=== PATIENT | female | born 1970 | race Caucasian/White ===

== ENCOUNTER → 2019-02-20 | Outpatient (CLI) | payer BC ==
--- NOTE | 2019-02-21 13:44 | MM ---
Reason for exam: screening (asymptomatic). Baseline mammogram. Physical Findings: Nurse did not find any significant physical abnormalities on exam. MG 3D Screening Mammo W/Cad Bilateral CC and MLO view(s) were taken. No prior studies available for comparison. There are scattered fibroglandular densities. No discrete abnormality. Inferior asymmetric density left breast does not persist on 3D. ASSESSMENT: Negative, BI-RAD 1 RECOMMENDATION: Routine screening mammogram of both breasts in 1 year.
== END | disposition home or self-care (01) ==
LOC: RADMAMWWP 08:22
PROVIDERS: ATTEND Obstetrics & Gynecology Obstetrics
DX: Z12.31 Encounter for screening mammogram for malignant neoplasm of breast (principal)
CPT/HCPCS: 77063; 77067

== ENCOUNTER → 2020-05-13 | Outpatient (CLI) | payer BC ==
--- NOTE | 2020-05-13 17:37 | ECHOF ---
Referral Reason: MEASUREMENTS -------- HEIGHT: 167.6 cm WEIGHT: 113.4 kg BP: RVIDd: 3.0 cm (< 3.3) IVSd: 1.1 cm (0.6 - 1.1) LVIDd: 4.0 cm (3.9 - 5.3) LVPWd: 1.4 cm (0.6 - 1.1) IVSs: 2.0 cm LVIDs: 2.1 cm LVPWs: 1.8 cm LAESV Index (A-L): 21.69 ml/m Ao Diam: 2.3 cm (2.0 - 3.7) AV Cusp: 1.8 cm (1.5 - 2.6) LA Diam: 2.3 cm (2.7 - 3.8) MV EXCURSION: 15.856 mm (> 18.000) MV EF SLOPE: 102 mm/s (70 - 150) MV E Cecil: 0.88 m/s MV DecT: 192 ms MV A Cecil: 0.86 m/s MV E/A Ratio: 1.02 RAP: 5.00 mmHg RVSP: 8.98 mmHg FINDINGS -------- This was a technically adequate study. The left ventricular size is normal. There is mild concentric left ventricular hypertrophy. Overa ll left ventricular systolic function is normal with, an EF between 55 - 60 %. The right ventricle is normal in size. The left atrial size is normal. The right atrial size is normal. The aortic valve is trileaflet and appears structurally normal. The mitral valve is normal. Mild mitral regurgitation is present. The tricuspid valve appears structurally normal. Mild tricuspid regurgitation present. Right vent ricular systolic pressure is normal at < 35 mmHg. There is no pulmonic regurgitation present. The aortic root size is normal. Normal inferior vena cava with normal inspiratory collapse consistent with estimated right atrial pre ssure of 5 mmHg. There is no pericardial effusion. CONCLUSIONS -------- 1. There is mild concentric left ventricular hypertrophy. 2. Overall left ventricular systolic function is normal with, an EF between 55 - 60 %. 3. Mild mitral regurgitation is present. 4. Mild tricuspid regurgitation present. 5. There is no pericardial effusion. TURPENTINE FARMER: Tatiana Romo RDCS
== END | disposition home or self-care (01) ==
LOC: RADECHMAIN 12:10
PROVIDERS: ATTEND Nurse Practitioner Adult Health
DX: I08.1 Rheumatic disorders of both mitral and tricuspid valves (principal)
CPT/HCPCS: 93306

== ENCOUNTER → 2021-05-05 | Outpatient (CLI) | payer BC ==
--- NOTE | 2021-05-05 14:36 | US ---
EXAMINATION TYPE: US venous doppler duplex LE LT DATE OF EXAM: 05/05/2021 2:21 PM COMPARISON: NONE CLINICAL HISTORY: M25.572 Pain in ankle/ CAlf. Patient stated had left ankle injury in January, but c/o left calf swelling and pain x 2 days SIDE PERFORMED: Left TECHNIQUE: The lower extremity deep venous system is examined utilizing real time linear array sonog chel with graded compression, doppler sonography and color-flow sonography. VESSELS IMAGED: Common Femoral Vein Deep Femoral Vein Greater Saphenous Vein * Femoral Vein Popliteal Vein Small Saphenous Vein * Proximal Calf Veins (* superficial vessels) Left Leg: Negative for DVT IMPRESSION: No evidence for DVT.
== END | disposition home or self-care (01) ==
LOC: RADUSWWP 13:53
PROVIDERS: ATTEND Orthopaedic Surgery Sports Medicine
DX: M25.572 Pain in left ankle and joints of left foot (principal); R22.42 Localized swelling, mass and lump, left lower limb

== ENCOUNTER 2022-03-01 20:28 | Emergency (ER) | payer BC ==
[2022-03-01 20:34] VITALS: BP 119/64; PULSE 90; RESP 16; TEMP 98.1
[2022-03-01 21:14] LABS: Anisocytosis Slight; Basophils # (A) 0.1 k/uL (0-0.2); Basophils % (A) 1 %; Eosinophils # (A) 0.2 k/uL (0-0.7); Eosinophils % (A) 1 %; HCT 41.5 % (34.0-46.0); HGB 13.2 gm/dL (11.4-16.0); Hypochromasia Slight; Lymphocytes # (A) 3.7 k/uL (1.0-4.8); Lymphocytes % (A) 26 %; MCH 27.2 pg (25.0-35.0); MCHC 31.9 g/dL (31.0-37.0); MCV 85.4 fL (80.0-100.0); Monocytes # (A) 0.7 k/uL (0-1.0); Monocytes % (A) 5 %; Neutrophils # (A) 9.2 k/uL (1.3-7.7); Neutrophils % (A) 65 %; Platelet Count 363 k/uL (150-450); RBC 4.86 m/uL (3.80-5.40); RDW 16.7 % (11.5-15.5); WBC 14.1 k/uL (3.8-10.6)
[2022-03-01 21:24] LABS: Albumin 4.3 g/dL (3.5-5.0); Calcium 8.5 mg/dL (8.4-10.2); Potassium 3.5 mmol/L (3.5-5.1); Total Bilirubin 0.2 mg/dL (0.2-1.3); Total Protein 7.6 g/dL (6.3-8.2)
[2022-03-01 21:25] LABS: Prothrombin Time 10.7 sec (9.0-12.0)
--- NOTE | 2022-03-02 00:31 | ED ---
General Adult HPI - General Chief complaint: Dizziness Stated complaint: dizziness Time Seen by Provider: 03/02/22 00:15 Source: patient, RN notes reviewed, old records reviewed Mode of arrival: ambulatory Limitations: no limitations - History of Present Illness Initial comments: Well-appearing 52-year-old female, alert and oriented 4 presents to the e mergency room with her son complaining of an episode of dizziness today with diaphoresis. Patient states that she was in the bathroom on the toilet she has been having some vaginal bleeding daily since November when taken off of Depakote. She is passing large clots. Her primary care doctor has been working her up for the increased vaginal bleeding. She also has history of an anemia. She does state. Denies any chest pain. She states that she did not pass out she does have a history of hypertension and anemia and cholecystectomy. She does have a family history of cardiac disease. Her last echocardiogram and stress test was over 5 years ago. -: hour(s) Severity scale (1-10): 0 Consistency: now resolved Associated Symptoms: diaphoresis, other (Dizziness) - Related Data Home Medications Medication Instructions Recorded Confirmed Topiramate 50 mg PO DAILY 02/14/14 02/14/14 Allergies Allergy/AdvReac Type Severity Reaction Status Date / Time cefaclor [From [facility]] Allergy Rash/Hives Verified 03/01/22 20:34 Review of Systems ROS Statement: Those systems with pertinent positive or pertinent negative responses have been documented in the HPI. ROS Other: All systems not noted in ROS Statement are negative. Past Medical History Past Medical History: Hypertension Additional Past Medical History / Comment(s): Anemia, Hypoglycemia History of Any Multi-Drug Resistant Organisms: None Reported Past Surgical History: Cholecystectomy, Hernia Repair Past Anesthesia/Blood Transfusion Reactions: No Reported Reaction Past Psychological History: No Psychological Hx Reported Smoking Status: Vaper Past Alcohol Use History: Occasional Past Drug Use History: None Reported General Exam Limitations: no limitations General appearance: alert, in no apparent distress Head exam: Present: atraumatic, normocephalic Eye exam: Present: normal appearance. Absent: scleral icterus, conjunctival injection, periorbital swelling, periorbital tenderness ENT exam: Present: mucous membranes dry Neck exam: Present: normal inspection, full ROM. Absent: tenderness, meningismus Respiratory exam: Present: normal lung sounds bilaterally. Absent: respiratory distress, accessory muscle use Cardiovascular Exam: Present: regular rate GI/Abdominal exam: Present: soft. Absent: distended, tenderness Extremities exam: Present: normal capillary refill, pedal edema (Trace) Neurological exam: Present: alert, oriented X3 Psychiatric exam: Present: normal affect, normal mood Skin exam: Present: warm, dry, intact. Absent: cyanosis, diaphoretic, petechiae Course Vital Signs 03/01/22 20:29 Temperature 98.1 F Pulse Rate 90 Respiratory 16 Rate Blood Pressure 119/64 O2 Sat by Pulse 96 Oximetry EKG Findings - EKG Results: EKG: sinus rhythm (Sinus rhythm with ventricular rate 82, MA interval 0.152, QRS 0.89, QTC 0.427) Medical Decision Making - Medical Decision Making Hemoglobin and hematocrit are stable. Troponin 2 is negative. TSH is 1.250. Chest x-ray shows no acute cardiopulmonary disease. EKG shows sinus rhythm normal axis. Vital signs are stable. She has no focal neurological deficits. She denies any headaches or visual changes. Patient has had no further episodes of dizziness or diaphoresis. She denies chest pain or shortness of breath. This was likely a vasovagal episode related to toileting and vaginal bleeding. She was instructed to follow-up with her primary care doctor this week. Return to the emergency room with any new or concerning symptoms. She was discharged home with her son, ambulatory with a steady gait. She is agreeable to this plan of care. Case was discussed with Dr. Matos. - Lab Data Result diagrams: 03/01/22 21:06 03/01/22 21:06 Lab Results 03/01/22 03/01/22 03/01/22 Range/Units 21:06 21:06 21:06 WBC 14.1 H (3.8-10.6) k/uL RBC 4.86 (3.80-5.40) m/uL Hgb 13.2 (11.4-16.0) gm/dL Hct 41.5 (34.0-46.0) % MCV 85.4 (80.0-100.0) fL MCH 27.2 (25.0-35.0) pg MCHC 31.9 (31.0-37.0) g/dL RDW 16.7 H (11.5-15.5) % Plt Count 363 (150-450) k/uL MPV 8.0 Neutrophils % 65 % Lymphocytes % 26 % Monocytes % 5 % Eosinophils % 1 % Basophils % 1 % Neutrophils # 9.2 H (1.3-7.7) k/uL Lymphocytes # 3.7 (1.0-4.8) k/uL Monocytes # 0.7 (0-1.0) k/uL Eosinophils # 0.2 (0-0.7) k/uL Basophils # 0.1 (0-0.2) k/uL Hypochromasia Slight Anisocytosis Slight PT (9.0-12.0) sec INR (<1.2) Sodium 142 (137-145) mmol/L Potassium 3.5 (3.5-5.1) mmol/L Chloride 113 H (98-107) mmol/L Carbon Dioxide 14 L (22-30) mmol/L Anion Gap 15 mmol/L BUN 10 (7-17) mg/dL Creatinine 1.02 (0.52-1.04) mg/dL Est GFR (CKD-EPI)AfAm 75 (>60 ml/min/1.73 sqM) Est GFR (CKD-EPI)NonAf 65 (>60 ml/min/1.73 sqM) Glucose 100 H (74-99) mg/dL Calcium 8.5 (8.4-10.2) mg/dL Total Bilirubin 0.2 (0.2-1.3) mg/dL AST 22 (14-36) U/L ALT 21 (4-34) U/L Alkaline Phosphatase 90 (38-126) U/L Troponin I <0.012 (0.000-0.034) ng/mL Total Protein 7.6 (6.3-8.2) g/dL Albumin 4.3 (3.5-5.0) g/dL TSH (0.465-4.680) mIU/L 03/01/22 03/02/22 03/02/22 Range/Units 21:07 00:59 00:59 WBC (3.8-10.6) k/uL RBC (3.80-5.40) m/uL Hgb (11.4-16.0) gm/dL Hct (34.0-46.0) % MCV (80.0-100.0) fL MCH (25.0-35.0) pg MCHC (31.0-37.0) g/dL RDW (11.5-15.5) % Plt Count (150-450) k/uL MPV Neutrophils % % Lymphocytes % % Monocytes % % Eosinophils % % Basophils % % Neutrophils # (1.3-7.7) k/uL Lymphocytes # (1.0-4.8) k/uL Monocytes # (0-1.0) k/uL Eosinophils # (0-0.7) k/uL Basophils # (0-0.2) k/uL Hypochromasia Anisocytosis PT 10.7 (9.0-12.0) sec INR 1.0 (<1.2) Sodium (137-145) mmol/L Potassium (3.5-5.1) mmol/L Chloride (98-107) mmol/L Carbon Dioxide (22-30) mmol/L Anion Gap mmol/L BUN (7-17) mg/dL Creatinine (0.52-1.04) mg/dL Est GFR (CKD-EPI)AfAm (>60 ml/min/1.73 sqM) Est GFR (CKD-EPI)NonAf (>60 ml/min/1.73 sqM) Glucose (74-99) mg/dL Calcium (8.4-10.2) mg/dL Total Bilirubin (0.2-1.3) mg/dL AST (14-36) U/L ALT (4-34) U/L Alkaline Phosphatase (38-126) U/L Troponin I <0.012 (0.000-0.034) ng/mL Total Protein (6.3-8.2) g/dL Albumin (3.5-5.0) g/dL TSH 1.250 (0.465-4.680) mIU/L Disposition Clinical Impression: Dizziness Disposition: HOME SELF-CARE Condition: Good Instructions (If sedation given, give patient instructions): Dizziness (ED) Additional Instructions: Increase your fluid intake. Follow-up with your primary care doctor or DATABASE TECHNICIAN for your persistent vaginal bleeding. Return to the emergency room with any new or concerning symptoms including chest pain or shortness of breath. Is patient prescribed a controlled substance at d/c from ED?: No Referrals: Rigo Haider MD [Primary Care Provider] - 1-2 days Time of Disposition: 02:12
--- NOTE | 2022-03-02 00:53 | XR ---
EXAMINATION TYPE: XR chest 2V DATE OF EXAM: 03/02/2022 COMPARISON: 02/13/2014 HISTORY: 2 views TECHNIQUE: FINDINGS: Heart and mediastinum are normal. Lungs are clear. Diaphragm is normal. Bony thorax is intact. IMPRESSION: Normal chest. No change.
== END 2022-03-02 02:48 | disposition home or self-care (01) ==
LOC: EC 20:28
DX: R42 Dizziness and giddiness (principal); I10 Essential (primary) hypertension; F17.209 Nicotine dependence, unspecified, with unspecified nicotine-induced disorders; Z91.018 Allergy to other foods
CPT/HCPCS: 36415; 71046; 80053; 84443; 84484; 85025; 85610; 93005; 99284

== ENCOUNTER 2022-04-23 19:22 | Inpatient (IN) | payer OTHER ==
--- NOTE | 2022-04-23 22:35 | US ---
EXAMINATION TYPE: US venous doppler duplex LE RT DATE OF EXAM: 04/23/2022 10:04 PM COMPARISON: NONE CLINICAL HISTORY: swelling, pain, extremity cold. Right leg swelling, numbness, cold to touch SIDE PERFORMED: Right TECHNIQUE: The lower extremity deep venous system is examined utilizing real time linear array sonog chel with graded compression, doppler sonography and color-flow sonography. VESSELS IMAGED: Common Femoral Vein Deep Femoral Vein Greater Saphenous Vein * Femoral Vein Popliteal Vein Small Saphenous Vein * Proximal Calf Veins (* superficial vessels) Right Leg: Limited due to edema. Vessels visualized had good color and blood flow. IMPRESSION: No evidence of deep vein thrombosis in the right leg.
[2022-04-23] MEDS ORDERED: HYDROmorphone 1 MG/ML 1 ML SYRINGE IVP STA (23:47)
[2022-04-23] MEDS ORDERED: RX INFO: IV CONTRAST WAS GIVEN 1 EACH MISC MISCELLANE PRN (23:58)
--- NOTE | 2022-04-24 00:05 | ED ---
Extremity Problem HPI - General Chief complaint: Extremity Problem,Nontraumatic Stated complaint: Food cold, No feeling on right side Time Seen by Provider: 04/23/22 23:14 Source: patient, RN notes reviewed, old records reviewed Mode of arrival: ambulatory Limitations: no limitations - History of Present Illness Initial comments: This is a 52-year-old female to the emergency department for evaluation she presents today for evaluation regards to severe right lower Shorty pain initially she's been doing with for greater than a week and a half now. She was seen at outside hospital with no profound diagnosis diagnoses myositis but her strength has not returned to that lower extremity and numbness and tingling has not improved. Her right lower extremity is significantly swollen. With significant weakness, cold diminishing color MD Complaint: extremity pain, extremity swelling, cold extremity, joint swelling, joint pain -: week(s) (2) Location: right, lower extremity History of Same: Yes (2 weeks) -: Yes myalgia Radiation: proximal, distal Severity scale (1-10): 10 Consistency: constant Improves with: nothing Worsens with: weight bearing Associated Symptoms: myalgias - Related Data Home Medications Medication Instructions Recorded Confirmed Topiramate 50 mg PO DAILY 02/14/14 02/14/14 Allergies Allergy/AdvReac Type Severity Reaction Status Date / Time cefaclor [From Ceclor] Allergy Rash/Hives Verified 04/23/22 21:03 Review of Systems ROS Statement: Those systems with pertinent positive or pertinent negative responses have been documented in the HPI. ROS Other: All systems not noted in ROS Statement are negative. Past Medical History Past Medical History: Hypertension Additional Past Medical History / Comment(s): Anemia, Hypoglycemia History of Any Multi-Drug Resistant Organisms: None Reported Past Surgical History: Cholecystectomy, Hernia Repair Past Anesthesia/Blood Transfusion Reactions: No Reported Reaction Past Psychological History: No Psychological Hx Reported Smoking Status: Never smoker, Vaper Past Alcohol Use History: Occasional Past Drug Use History: None Reported General Exam Limitations: no limitations General appearance: alert, in no apparent distress, anxious Head exam: Present: atraumatic, normocephalic, normal inspection Eye exam: Present: normal appearance, PERRL, EOMI. Absent: scleral icterus, conjunctival injection, periorbital swelling ENT exam: Present: normal exam, mucous membranes moist Neck exam: Present: normal inspection. Absent: tenderness, meningismus, lymphadenopathy Respiratory exam: Present: normal lung sounds bilaterally. Absent: respiratory distress, wheezes, rales, rhonchi, stridor Cardiovascular Exam: Present: regular rate, normal rhythm, normal heart sounds. Absent: systolic murmur, diastolic murmur, rubs, gallop, clicks GI/Abdominal exam: Present: soft, normal bowel sounds. Absent: distended, tenderness, guarding, rebound, rigid Extremities exam: Present: tenderness, pedal edema, joint swelling, calf tenderness, other (Right lower extremity is cold with diminished pulse). Absent: normal inspection, full ROM (Minimal mobility with right lower extremity), normal capillary refill (Diminished) Back exam: Present: normal inspection Neurological exam: Present: alert, oriented X3, CN II-XII intact Psychiatric exam: Present: normal affect, depressed Skin exam: Present: dry, intact, cyanosis, pallor, other (Right lower extremity is significantly swollen pale and cold). Absent: rash Course Vital Signs 04/23/22 04/24/22 20:58 00:42 Temperature 98.5 F Pulse Rate 78 64 Respiratory 20 18 Rate Blood Pressure 160/94 125/85 O2 Sat by Pulse 100 100 Oximetry - Reevaluation(s) Reevaluation #1: 04/24/22 00:40 Medical records are reviewed 04/24/22 00:40 Medical records from [facility] but requested Reevaluation #2: 04/24/22 00:40 Patient has improved pain control Reevaluation #3: 04/24/22 02:50 Patient informed results questions answered - Consultations Consultation #1: Spoke with [facility] she will admit this patient Medical Decision Making - Medical Decision Making 52 female to the emergency department for evaluation of significantly right lower extremity edema and pain weakness and paresthesia mild strength to gravity. Arterial flow but significant edema and right compared to left leg, patient be admitted for further evaluation management, pain control - Lab Data Result diagrams: 04/24/22 00:40 04/24/22 00:40 Lab Results 04/23/22 04/24/22 04/24/22 Range/Units 01:08 00:40 00:40 WBC (3.8-10.6) k/uL RBC (3.80-5.40) m/uL Hgb (11.4-16.0) gm/dL Hct (34.0-46.0) % MCV (80.0-100.0) fL MCH (25.0-35.0) pg MCHC (31.0-37.0) g/dL RDW (11.5-15.5) % Plt Count (150-450) k/uL MPV Neutrophils % % Lymphocytes % % Monocytes % % Eosinophils % % Basophils % % Neutrophils # (1.3-7.7) k/uL Lymphocytes # (1.0-4.8) k/uL Monocytes # (0-1.0) k/uL Eosinophils # (0-0.7) k/uL Basophils # (0-0.2) k/uL Anisocytosis PT (9.0-12.0) sec INR (<1.2) APTT (22.0-30.0) sec Sodium 137 (137-145) mmol/L Potassium 3.7 (3.5-5.1) mmol/L Chloride 106 (98-107) mmol/L Carbon Dioxide 23 (22-30) mmol/L Anion Gap 8 mmol/L BUN 11 (7-17) mg/dL Creatinine 0.77 (0.52-1.04) mg/dL Est GFR (CKD-EPI)AfAm >90 (>60 ml/min/1.73 sqM) Est GFR (CKD-EPI)NonAf >90 (>60 ml/min/1.73 sqM) Glucose 83 (74-99) mg/dL Plasma Lactic Acid Sudheer 1.4 (0.7-2.0) mmol/L Calcium 8.2 L (8.4-10.2) mg/dL Phosphorus 2.8 (2.5-4.5) mg/dL Magnesium 1.9 (1.6-2.3) mg/dL Total Bilirubin 0.4 (0.2-1.3) mg/dL AST 38 H (14-36) U/L ALT 52 H (4-34) U/L Alkaline Phosphatase 58 (38-126) U/L Creatine Kinase 217 H (30-135) U/L CK-MB (CK-2) 4.0 H (0.0-2.4) ng/mL Troponin I <0.012 (0.000-0.034) ng/mL NT-Pro-B Natriuret Pep pg/mL Total Protein 5.4 L (6.3-8.2) g/dL Albumin 3.1 L (3.5-5.0) g/dL 04/24/22 04/24/22 04/24/22 Range/Units 00:40 00:40 00:40 WBC 12.3 H (3.8-10.6) k/uL RBC 4.21 (3.80-5.40) m/uL Hgb 11.6 (11.4-16.0) gm/dL Hct 36.6 (34.0-46.0) % MCV 86.9 (80.0-100.0) fL MCH 27.6 (25.0-35.0) pg MCHC 31.7 (31.0-37.0) g/dL RDW 16.5 H (11.5-15.5) % Plt Count 242 (150-450) k/uL MPV 7.6 Neutrophils % 62 % Lymphocytes % 28 % Monocytes % 5 % Eosinophils % 3 % Basophils % 1 % Neutrophils # 7.6 (1.3-7.7) k/uL Lymphocytes # 3.5 (1.0-4.8) k/uL Monocytes # 0.6 (0-1.0) k/uL Eosinophils # 0.3 (0-0.7) k/uL Basophils # 0.1 (0-0.2) k/uL Anisocytosis Slight PT 9.7 (9.0-12.0) sec INR 0.9 (<1.2) APTT 22.0 (22.0-30.0) sec Sodium (137-145) mmol/L Potassium (3.5-5.1) mmol/L Chloride (98-107) mmol/L Carbon Dioxide (22-30) mmol/L Anion Gap mmol/L BUN (7-17) mg/dL Creatinine (0.52-1.04) mg/dL Est GFR (CKD-EPI)AfAm (>60 ml/min/1.73 sqM) Est GFR (CKD-EPI)NonAf (>60 ml/min/1.73 sqM) Glucose (74-99) mg/dL Plasma Lactic Acid Sudheer (0.7-2.0) mmol/L Calcium (8.4-10.2) mg/dL Phosphorus (2.5-4.5) mg/dL Magnesium (1.6-2.3) mg/dL Total Bilirubin (0.2-1.3) mg/dL AST (14-36) U/L ALT (4-34) U/L Alkaline Phosphatase (38-126) U/L Creatine Kinase (30-135) U/L CK-MB (CK-2) (0.0-2.4) ng/mL Troponin I (0.000-0.034) ng/mL NT-Pro-B Natriuret Pep 138 pg/mL Total Protein (6.3-8.2) g/dL Albumin (3.5-5.0) g/dL - EKG Data -: EKG Interpreted by Me (EKG shows sinus rhythm 65 OK 148 QRS 94 QTc 433) - Radiology Data Radiology results: report reviewed (CT angios aorta in the right lower extremity shows arterial flow throughout leg), image reviewed Disposition Clinical Impression: Leg edema, right, Right leg paresthesias, Edema of lower extremity, Right leg pain Disposition: ADMITTED IP TO THIS [facility] Condition: Undetermined Is patient prescribed a controlled substance at d/c from ED?: No Referrals: Rigo Haider MD [Primary Care Provider] - 1-2 days Time of Disposition: 02:45
[2022-04-24 01:08] LABS: Anisocytosis Slight; Basophils # (A) 0.1 k/uL (0-0.2); Basophils % (A) 1 %; Eosinophils # (A) 0.3 k/uL (0-0.7); Eosinophils % (A) 3 %; HCT 36.6 % (34.0-46.0); HGB 11.6 gm/dL (11.4-16.0); Lymphocytes # (A) 3.5 k/uL (1.0-4.8); Lymphocytes % (A) 28 %; MCH 27.6 pg (25.0-35.0); MCHC 31.7 g/dL (31.0-37.0); MCV 86.9 fL (80.0-100.0); Mean Platelet Volume 7.6; Monocytes # (A) 0.6 k/uL (0-1.0); Monocytes % (A) 5 %; Neutrophils # (A) 7.6 k/uL (1.3-7.7); Neutrophils % (A) 62 %; Platelet Count 242 k/uL (150-450); RBC 4.21 m/uL (3.80-5.40); RDW 16.5 % (11.5-15.5); WBC 12.3 k/uL (3.8-10.6)
[2022-04-24 01:18] LABS: ALT 52 U/L (4-34); African American GFR (CKD) >90 (>60 ml/min/1.73 sqM); Albumin 3.1 g/dL (3.5-5.0); Anion Gap 8 mmol/L; Blood Urea Nitrogen 11 mg/dL (7-17); Calcium 8.2 mg/dL (8.4-10.2); Carbon Dioxide 23 mmol/L (22-30); Chloride 106 mmol/L (98-107); Creatine Kinase 217 U/L (30-135); Glucose 83 mg/dL (74-99); Non-African American GFR(CKD) >90 (>60 ml/min/1.73 sqM); Sodium 137 mmol/L (137-145); Total Bilirubin 0.4 mg/dL (0.2-1.3); Total Protein 5.4 g/dL (6.3-8.2)
[2022-04-24 01:25] LABS: AST 38 U/L (14-36); Alkaline Phosphatase 58 U/L (38-126); Magnesium 1.9 mg/dL (1.6-2.3); Phosphorus 2.8 mg/dL (2.5-4.5); Potassium 3.7 mmol/L (3.5-5.1)
[2022-04-24 01:27] LABS: INR 0.9 (<1.2); Prothrombin Time 9.7 sec (9.0-12.0)
[2022-04-24 01:30] LABS: Troponin I <0.012 ng/mL (0.000-0.034)
--- NOTE | 2022-04-24 02:40 | CT ---
CT angiogram of the chest abdomen pelvis with runoffs. History right leg with no pulse. Swelling. Comparison none. TECHNIQUE: Images obtained from the thoracic inlet to the diaphragm with no contrast. Images obtained from the thoracic inlet to the bottom of the feet with the IV contrast. There are Thr ee-D postprocessed images. FINDINGS: The lungs are clear of infiltrate. Heart size is normal. No pericardial effusion. No mediastinal gregor opathy. There are no hilar masses. Thoracic aorta is intact. No aneurysm or dissection. The liver spleen and stomach pancreas appear intact. There are clips from cholecystectomy. The bile d ucts are not dilated. Kidneys show satisfactory contrast opacification. There is no hydronephrosis. U reters are not dilated. There is no evidence of renal mass. No retroperitoneal adenopathy. Cecum is o n the left of midline. Bladder distends smoothly. Uterus is intact. No inguinal hernia. No free fluid in the pelvis. There is 1.5 cm cyst posterior left kidney. There is subcutaneous edema around the right leg. There is arterial flow in the abdominal aorta and the celiac artery and superior mesenteric artery. T here is arterial flow in the renal and iliac arteries. No evidence of aneurysm or dissection. There i s arterial flow in the femoral arteries bilaterally. There is arterial flow in the popliteal arteries . There is diffuse subcutaneous edema around both lower legs and more on the right side. There is sub optimal contrast density in the tibial and popliteal arteries. There is posterior tibial artery flow at the right ankle. There is posterior tibial artery flow at the left ankle. There appears to be ante rior tibial artery flow at both ankles. I do not see an occlusion. There is bilateral flow in the fem oral and iliac veins. There is normal opacification of the inferior vena cava. The thoracic and lumbar spine are intact. No compression fracture IMPRESSION: Suboptimal exam. Limited arterial evaluation of the lower legs below the knees. No evidence of a comp lete arterial occlusion. There is diffuse subcutaneous edema around the right leg and minimal edema a round the left leg. If there is persisting clinical indication Doppler ultrasound could verify some arterial flow in the dorsalis pedis arteries and posterior tibial arteries. No evidence of radiographic abnormality within the abdomen and pelvis and chest. No evidence of pulmo nary embolism.
[2022-04-24] MEDS ORDERED: NALOXONE 0.4 MG/ML 1 ML VIAL IV PRN (02:44)
[2022-04-24] MEDS ORDERED: ONDANSETRON 4 MG/2 ML VIAL IVP PRN (02:44)
[2022-04-24] MEDS: HYDROmorphone 1 MG/ML 1 ML SYRINGE IVP PRN ×2 (05:00→20:11)
--- NOTE | 2022-04-24 09:26 | P.HPIM ---
History of Present Illness H&P Date: 04/24/22 History of Presenting Illness: Patient is a Very pleasant 52-year-old female with a past medical history of hypertension. She presented to the emergency department with the chief complaint of right lower extremity numbness and pain. Patient [place] evening of excessive drinking on 04/11/22 awakening on 04/12/22 with inability to move her right lower extremity. Patient does report having excessive alcohol use that evening and was reportedly found down on the ground by her boyfriend approximately 1-2 hours after she reports "passing out i n bed". patient states since she was unable to move her right leg or apply any pressure on it she was taken to [facility] and evaluated in their emergency department where she was later transferred to [facility] for an MRI. Patient reports she was later diagnosed with myolitis and discharged home. Patient reports she remains unable to move her right lower extremity and continues to have persistent numbness and now a tingling painful sensation.patient underwent evaluation in the emergency department, CBC revealing mild leukocytosis with WBC count of 12.3, coags normal findings, BMP unremarkable. Lactate 1.4. Liver profile revealing elevated AST of 38 and ALT of 52. Creatinine kinase was elevated at 217 upon review of previous hospitals labs creatinine kidneys was 6872 on 04/15/22.CTA aorta with runoff revealed no evidence of complete arterial occlusion but did reveal diffuse subcutaneous edema around the right leg and minimal edema around the left leg. venous Doppler negative for DVT of the right leg.EKG was completed showing normal sinus rhythm at 65 bpm.x-ray lumbar spine negative for acute fracture or dislocation. Patient was admitted under our services with consultation to neurology and vascular surgery. Review of systems: Pertinent positives and negatives as discussed in HPI, a complete review of systems was performed and all other systems are negative. Physical exam: Vital signs reviewed and stable. General: Nontoxic, no distress and appears stated age. Derm: Skin warm and dry, normal coloration for ethnicity.patient with bruising generalized over upper and lower extremities. Moderate bruising to right breast breast and right lateral ankle and mild bruising to left hip. Head: Atraumatic, normocephalic and symmetric. Eyes: EOMs intact, no lid lag, and anicteric sclera Mouth: no lip lesions, mucus membranes moist Cardiovascular: regular rate and rhythm with normal S1S2, no murmur, positive posterior tibial pulses bilaterally, and cap refill < 2 seconds. Lungs: Respirations even, regular, and unlabored on room air. Lungs CTA bilaterally, no rhonchi, no rales, no wheezing, and no accessory muscle usage. Abdominal: soft, nontender to palpation, no guarding, no appreciable organomegaly Ext: No gross muscle atrophy, bilateral lower extremity edema right greater than left, no contractures Neuro: Speech clear, face symmetrical and CN II-XII grossly intact with no noted focal neuro deficits. sensation intact to painful stimuli, however patient reports loss of sensation to light or mild touch in continued decreased movement with right lower extremity. Psych: Alert and oriented to person, place, time, and situation. Appropriate and pleasant affect. Assessment and Plan of Care: Right lower extremity weakness, swelling, numbness, and tingling status post fall on 04/12/22 -Consult orthopedic surgery -Consult vascular surgery -Neuro checks every 4 hours -Neurovascular checks right lower extremity every 2-4 hours -CK remains elevated at 217 upon review of previous hospital's labs CK was 6872 on 04/15/22. -fall precautions -PT/OT consult Hypertension Monitor vital signs and continue daily medication regimen with lisinopril. Depression and anxiety Continue daily medication regimen with Lexapro, Wellbutrin and Topamax The patient is admitted with an anticipated greater than 2 midnight stay for evaluation of right lower extremity weakness CODE STATUS: full code DVT prophylaxis: heparin Discussed with: patient and RN Anticipated discharge date: clinical course to determine Anticipated discharge place: home A total of 42 minutes was spent on the care of this complex patient more than 50% of the time was spent in counseling and care coordination. I reviewed the documentation as provided by the MARIELLA above, who is the original author of this note. I agree with the documented assessment and plan, with the following changes: none Past Medical History Past Medical History: Hypertension Additional Past Medical History / Comment(s): Anemia, Hypoglycemia History of Any Multi-Drug Resistant Organisms: None Reported Past Surgical History: Cholecystectomy, Hernia Repair Past Anesthesia/Blood Transfusion Reactions: No Reported Reaction Past Psychological History: No Psychological Hx Reported Smoking Status: Never smoker, Vaper Past Alcohol Use History: Occasional Past Drug Use History: None Reported - Past Family History Mother Family Medical History: Diabetes Mellitus Additional Family Medical History / Comment(s): heart surgery (mitral valve) , anemia Father Family Medical History: Diabetes Mellitus Medications and Allergies Home Medications Medication Instructions Recorded Confirmed Type Topiramate 50 mg PO BID 02/14/14 04/24/22 History Ergocalciferol [Vitamin D2 (1250 1,250 mcg PO MO 04/24/22 04/24/22 History Mcg = 26733 Iu)] Escitalopram [Lexapro] 20 mg PO DAILY 04/24/22 04/24/22 History Famotidine [Pepcid] 20 mg PO BID 04/24/22 04/24/22 History Gabapentin [Neurontin] 300 mg PO BID 04/24/22 04/24/22 History Galcanezumab-Gnlm [Emgality Pen] 120 mg SQ Q28D 04/24/22 04/24/22 History Naproxen [Naprosyn] 250 mg PO BID 04/24/22 04/24/22 History buPROPion XL [Wellbutrin XL] 150 mg PO DAILY 04/24/22 04/24/22 History lisinopriL [Zestril] 10 mg PO DAILY 04/24/22 04/24/22 History Allergies Allergy/AdvReac Type Severity Reaction Status Date / Time cefaclor [From [facility]] Allergy Rash/Hives Verified 04/24/22 08:06 Physical Exam Osteopathic Statement: *. No significant issues noted on an osteopathic structural exam other than those noted in the History and Physical/Consult. Vitals: Vital Signs Temp Pulse Pulse Resp BP BP Pulse Ox 04/24/22 07:59 98.1 F 78 16 126/70 98 04/24/22 04:20 17 04/24/22 03:47 97.6 F 72 17 131/77 97 04/24/22 00:42 64 18 125/85 100 04/23/22 20:58 98.5 F 78 20 160/94 100 Intake and Output 04/23/22 04/24/22 04/24/22 22:59 06:59 14:59 Other: Voiding Method Toilet # Voids 1 Weight 129.274 kg 129.274 kg Results CBC & Chem 7: 04/25/22 05:43 04/25/22 05:43 Labs: Abnormal Lab Results - Last 24 Hours (Table) 04/24/22 04/24/22 04/24/22 Range/Units 00:40 00:40 00:40 WBC 12.3 H (3.8-10.6) k/uL RDW 16.5 H (11.5-15.5) % Calcium 8.2 L (8.4-10.2) mg/dL AST 38 H (14-36) U/L ALT 52 H (4-34) U/L Creatine Kinase 217 H (30-135) U/L CK-MB (CK-2) 4.0 H (0.0-2.4) ng/mL Total Protein 5.4 L (6.3-8.2) g/dL Albumin 3.1 L (3.5-5.0) g/dL Thrombosis Risk Factor Assmnt - Choose All That Apply Each Factor Represents 1 point: Age 41-60 years, Obesity (BMI >25), Swollen legs (current) Thrombosis Risk Factor Assessment Total Risk Factor Score: 3 Thrombosis Risk Factor Assessment Level: Moderate Risk
[2022-04-24] MEDS: FAMOTIDINE 20 MG TAB PO SCH ×2 (10:26→20:11)
[2022-04-24] MEDS: lisinopriL 10 MG TAB PO SCH (10:26)
[2022-04-24] MEDS: GABAPENTIN 300 MG CAP PO SCH ×2 (10:26→20:11)
[2022-04-24] MEDS: TOPIRAMATE 25 MG TAB PO SCH ×2 (10:26→20:12)
[2022-04-24] MEDS: buPROPion XL 150 MG TAB.ER.24H PO SCH (10:27)
[2022-04-24] MEDS: ESCITALOPRAM 20 MG TAB PO SCH (10:29)
--- NOTE | 2022-04-24 12:27 | P.HPOR ---
History of Present Illness H&P Date: 04/24/22 Chief Complaint: RLE weakness, numbess, swelling 52 yo female presented from outside hospital for c/o RLE weakness, severe swelling and pain along with numbness for the past week. She was seen up in [place] where she had MRI of her spine. She was sent to [facility] for evaluation of her RLE. She states numbness from hip down of the RLE for the past week. She states weakness in her RLE for the same time. She denies any trauma or injury. She states no other issues. She denies any back pain or back injury. She denies any bowel or bladder issues at this time. No perineal numbness/tingling. Review of Systems 14 points review of systems completed and as stated in HPI, all other systems reviewed are negative. Past Medical History Past Medical History: Hypertension Additional Past Medical History / Comment(s): Anemia, Hypoglycemia History of Any Multi-Drug Resistant Organisms: None Reported Past Surgical History: Cholecystectomy, Hernia Repair Past Anesthesia/Blood Transfusion Reactions: No Reported Reaction Past Psychological History: No Psychological Hx Reported Smoking Status: Never smoker, Vaper Past Alcohol Use History: Occasional Past Drug Use History: None Reported - Past Family History Mother Family Medical History: Diabetes Mellitus Additional Family Medical History / Comment(s): heart surgery (mitral valve) , anemia Father Family Medical History: Diabetes Mellitus Medications and Allergies Home Medications Medication Instructions Recorded Confirmed Type Topiramate 50 mg PO BID 02/14/14 04/24/22 History Ergocalciferol [Vitamin D2 (1250 1,250 mcg PO MO 04/24/22 04/24/22 History Mcg = 23113 Iu)] Escitalopram [Lexapro] 20 mg PO DAILY 04/24/22 04/24/22 History Famotidine [Pepcid] 20 mg PO BID 04/24/22 04/24/22 History Gabapentin [Neurontin] 300 mg PO BID 04/24/22 04/24/22 History Galcanezumab-Gnlm [Emgality Pen] 120 mg SQ Q28D 04/24/22 04/24/22 History Naproxen [Naprosyn] 250 mg PO BID 04/24/22 04/24/22 History buPROPion XL [Wellbutrin XL] 150 mg PO DAILY 04/24/22 04/24/22 History lisinopriL [Zestril] 10 mg PO DAILY 04/24/22 04/24/22 History Allergies Allergy/AdvReac Type Severity Reaction Status Date / Time [facility] Allergy Rash/Hives Verified 04/24/22 08:06 Physical Examination Osteopathic Statement: *. No significant issues noted on an osteopathic structural exam other than those noted in the History and Physical/Consult. Patient is alert and oriented 3 appears well-nourished well-hydrated is in no acute distress. They do not appear septic. There is no TTP Lower extremities with 5 out of 5 strength in all major muscle groups except the right lower extremity where she has antigravity strength in the right lower extremity and hip flexion knee flexion-extension she has good dorsiflexion plantar flexion but is difficult for her to do secondary to the swelling Upper extremities show 5/5 strength in all major muscle groups. There is FROM that is painless of the b/l UE and LE in all major joints. They are intact to light touch sensation in C5 to T1 and L2 to S1 nerve distribution. DTR 2/4 all upper and lower extremities Patient has palpable dorsalis pedis was posterior tibial pulses. Palpable Rad Ulnar pulses b/l Compartments are soft and compressible. Patient shows a negative Homans Negative clonus Negative Babinski's Negative Hoffmans Cranial nerves II through XII are grossly intact. Results Xrays reviewed. No instability. No fracture. Normal disc height and VB heights. No lesions. Maintained alignment. - Labs Labs: Abnormal Lab Results - Last 24 Hours (Table) 04/24/22 04/24/22 04/24/22 Range/Units 00:40 00:40 00:40 WBC 12.3 H (3.8-10.6) k/uL RDW 16.5 H (11.5-15.5) % Calcium 8.2 L (8.4-10.2) mg/dL AST 38 H (14-36) U/L ALT 52 H (4-34) U/L Creatine Kinase 217 H (30-135) U/L CK-MB (CK-2) 4.0 H (0.0-2.4) ng/mL Total Protein 5.4 L (6.3-8.2) g/dL Albumin 3.1 L (3.5-5.0) g/dL H & H 04/24/22 Range/Units 00:40 Hgb 11.6 (11.4-16.0) gm/dL Hct 36.6 (34.0-46.0) % Coagulation 04/24/22 Range/Units 00:40 INR 0.9 (<1.2) Result Diagrams: 04/24/22 00:40 04/24/22 00:40 Assessment and Plan Assessment: 52 yo female RLE weakness, numbness RLE swelling, Edema Plan: -Xrays reviewed no acute findings -Recommend obtaining MRI images and reports from OSH to review or ordering new MRI T and L spine w/wo for evaluation -r/o vascular pathology with the swelling and hx of a cold foot
--- NOTE | 2022-04-24 12:30 | XR ---
EXAMINATION TYPE: XR lumbar spine with bend/flex DATE OF EXAM: 04/24/2022 CLINICAL HISTORY: pain COMPARISON: NONE TECHNIQUE: Frontal, lateral, and oblique images of the lumbar spine are obtained. Flexion and extensi on views are also submitted. FINDINGS: There are 5 lumbar type vertebral bodies identified. The lumbar spine shows satisfactory alignment without evidence of acute fracture or dislocation. Vertebral body heights are within normal limits. There is mild multilevel degenerative disc space narrowing primarily at L2-3. Mild ventral s pondylosis. Alignment is normal at neutral, flexion and extension. The overlying soft tissue appear s unremarkable. IMPRESSION: No acute fracture or dislocation is seen in the lumbar spine.ICD 10 NO FRACTURE, INITIAL EVALUATION
--- NOTE | 2022-04-24 12:44 | P.GSCN ---
History of Present Illness Consult date: 04/24/22 Reason for Consult: Right lower extremity numbness, weakness and pain Requesting physician: Live Matos History of present illness: This is a pleasant 52-year-old female presented to the emergency department y with complaints of continued right lower extremity pain, numbness and tingling. Patient states she has no feeling basically from her right hip down to her toes. She has difficulty with ambulation and moving that leg. She's had an increase in swelling as well. She states symptoms began on 04/12/2022. She states the night before she had drank too much and passed out on her bed. She states her boyfriend found her on the floor approximately 1-2 hours later. He assisted her back to bed and she slept through the night. She states that when she got up on Wednesday morning she felt that her leg felt funny, some numbness and tingling and pain in the hip. She states she went back to bed and when she woke up again she was still having numbness and tingling. She got up and had a significant amount of pain in that right leg and had to get down on her hands and knees to try to make it to the bathroom. She states she was eventually able to get onto the toilet, however she was unable to get off the toilet due to the weakness in that right lower extremity and not being able to stand. She awaited for her boyfriend who assisted her off the toilet and called EMS. She was brought to [facility] in [place] and was seen in the emergency department. She states she had several CTs completed however they wanted to do a MRI and they did not have an MRI machine so they transferred her to [facility] [place]. She states that one of his CTs did show some inflammation in the thigh and she was started on steroids, she also had elevated white count and was told that she had myositis. At this time there are no available records to review. She also states that she recently had COVID-19 infection February 17 in which she states that she had severe muscle aches to the point that she had to have steroids and this lasted approximately 2 weeks. She also reports a new bruise to the right lateral aspect of her ankles. She is denying any abdominal pain, chest pain, shortness of breath, nausea or vomiting. She denies any fevers or chills. She states that she has limited mobility of the right lower extremity that she feels like she doesn't have feeling in that right leg. Vascular surgery was consulted due to right lower extremity pain. She did have a CTA aorta with runoff. Report states a suboptimal exam. Limited are heard serial evaluation of the lower legs below the knees. No evidence of a complete arterial occlusion. Diffuse subcutaneous edema around the right leg and minimal edema around the left leg. No evidence of radiographic abnormality within the abdomen and pelvis and chest. No evidence of pulmonary embolism. Review of Systems A 14 point review systems was completed all pertinent positives and negatives as stated in the HPI. Past Medical History Past Medical History: Hypertension Additional Past Medical History / Comment(s): Anemia, Hypoglycemia History of Any Multi-Drug Resistant Organisms: None Reported Past Surgical History: Cholecystectomy, Hernia Repair Past Anesthesia/Blood Transfusion Reactions: No Reported Reaction Past Psychological History: No Psychological Hx Reported Smoking Status: Never smoker, Vaper Past Alcohol Use History: Occasional Past Drug Use History: None Reported - Past Family History Mother Family Medical History: Diabetes Mellitus Additional Family Medical History / Comment(s): heart surgery (mitral valve) , anemia Father Family Medical History: Diabetes Mellitus Medications and Allergies Home Medications Medication Instructions Recorded Confirmed Type Topiramate 50 mg PO BID 02/14/14 04/24/22 History Ergocalciferol [Vitamin D2 (1250 1,250 mcg PO MO 04/24/22 04/24/22 History Mcg = 23906 Iu)] Escitalopram [Lexapro] 20 mg PO DAILY 04/24/22 04/24/22 History Famotidine [Pepcid] 20 mg PO BID 04/24/22 04/24/22 History Gabapentin [Neurontin] 300 mg PO BID 04/24/22 04/24/22 History Galcanezumab-Gnlm [Emgality Pen] 120 mg SQ Q28D 04/24/22 04/24/22 History Naproxen [Naprosyn] 250 mg PO BID 04/24/22 04/24/22 History buPROPion XL [Wellbutrin XL] 150 mg PO DAILY 04/24/22 04/24/22 History lisinopriL [Zestril] 10 mg PO DAILY 04/24/22 04/24/22 History Allergies Allergy/AdvReac Type Severity Reaction Status Date / Time cefaclor [From [facility]] Allergy Rash/Hives Verified 04/24/22 08:06 Surgical - Exam Vital Signs Temp Pulse Resp BP Pulse Ox 98.5 F 78 20 160/94 100 04/23/22 20:58 04/23/22 20:58 04/23/22 20:58 04/23/22 20:58 04/23/22 20:58 General appearance: The patient is alert, oriented, appears in no acute distress . Obese. HET: Head is normocephalic and atraumatic. Pupils are equal and reactive. Neck: Supple without lymphadenopathy. Trachea midline. No audible carotid bruit. Heart: S1 S2. Regular rate and rhythm. Lungs: Clear to auscultation bilaterally. Abdomen: Soft, nontender, nondistended. Extremities: Normal skin color and turgor. Bilateral lower extremity edema, right greater than left. Warm to the touch, good capillary refill. Right lateral aspect of ankle with ecchymosis. Palpable bilateral femoral pulses. Unable to palpate DP and PT pulses due to edema. Patient had multiphasic DP and PT Doppler signals bilaterally. She does have some motor sensory loss, as well as range of motion of right lower extremity. Neurological: No focal deficits. Decreased sensorimotor right lower extremity. Results - Labs 04/24/22 00:40 04/24/22 00:40 Abnormal Lab Results - Last 24 Hours (Table) 04/24/22 04/24/22 04/24/22 Range/Units 00:40 00:40 00:40 WBC 12.3 H (3.8-10.6) k/uL RDW 16.5 H (11.5-15.5) % Calcium 8.2 L (8.4-10.2) mg/dL AST 38 H (14-36) U/L ALT 52 H (4-34) U/L Creatine Kinase 217 H (30-135) U/L CK-MB (CK-2) 4.0 H (0.0-2.4) ng/mL Total Protein 5.4 L (6.3-8.2) g/dL Albumin 3.1 L (3.5-5.0) g/dL Diabetes panel 04/24/22 Range/Units 00:40 Sodium 137 (137-145) mmol/L Potassium 3.7 (3.5-5.1) mmol/L Chloride 106 (98-107) mmol/L Carbon Dioxide 23 (22-30) mmol/L BUN 11 (7-17) mg/dL Creatinine 0.77 (0.52-1.04) mg/dL Glucose 83 (74-99) mg/dL Calcium 8.2 L (8.4-10.2) mg/dL AST 38 H (14-36) U/L ALT 52 H (4-34) U/L Alkaline Phosphatase 58 (38-126) U/L Total Protein 5.4 L (6.3-8.2) g/dL Albumin 3.1 L (3.5-5.0) g/dL Calcium panel 04/24/22 Range/Units 00:40 Calcium 8.2 L (8.4-10.2) mg/dL Phosphorus 2.8 (2.5-4.5) mg/dL Albumin 3.1 L (3.5-5.0) g/dL Pituitary panel 04/24/22 Range/Units 00:40 Sodium 137 (137-145) mmol/L Potassium 3.7 (3.5-5.1) mmol/L Chloride 106 (98-107) mmol/L Carbon Dioxide 23 (22-30) mmol/L BUN 11 (7-17) mg/dL Creatinine 0.77 (0.52-1.04) mg/dL Glucose 83 (74-99) mg/dL Calcium 8.2 L (8.4-10.2) mg/dL Adrenal panel 04/24/22 Range/Units 00:40 Sodium 137 (137-145) mmol/L Potassium 3.7 (3.5-5.1) mmol/L Chloride 106 (98-107) mmol/L Carbon Dioxide 23 (22-30) mmol/L BUN 11 (7-17) mg/dL Creatinine 0.77 (0.52-1.04) mg/dL Glucose 83 (74-99) mg/dL Calcium 8.2 L (8.4-10.2) mg/dL Total Bilirubin 0.4 (0.2-1.3) mg/dL AST 38 H (14-36) U/L ALT 52 H (4-34) U/L Alkaline Phosphatase 58 (38-126) U/L Total Protein 5.4 L (6.3-8.2) g/dL Albumin 3.1 L (3.5-5.0) g/dL - Imaging Comments: Aorta with runoff CTA reviewed as stated in HPI Lumbar spine x-ray pending Assessment and Plan Assessment: 1. Right lower extremity weakness, numbness and tingling status post fall 2. Right lower extremity swelling 3. History of hypertension Plan: 1. [facility] 2. If there has been no previous CT studies of the abdomen and pelvis consider CT venogram of abdomen and pelvis to evaluate proximal obstruction causing swelling of the lower extremities. 3. Appreciate recommendations from orthopedic surgeon 4. Consider neurology consultation 5. At this time there is no indication for any vascular surgical intervention, we will continue to follow. Further recommendations forthcoming based on clinical course Thank you for this consultation, we will continue to follow. The impression and plan of care has been dictated as directed. Dr. Mittal I performed a history and examination of this patient, discussed the same with the dictator. I agree with the dictator's note ,documented as a scribe. Any additional findings or plans will be noted.
[2022-04-25] MEDS: HEPARIN SODIUM,PORCINE/PF 5,000 UNIT/0.5 ML SYRINGE SQ SCH ×3 (00:10→16:36)
[2022-04-25] MEDS: GABAPENTIN 300 MG CAP PO SCH ×2 (08:15→20:18)
[2022-04-25] MEDS: FAMOTIDINE 20 MG TAB PO SCH ×2 (08:15→20:18)
[2022-04-25] MEDS: lisinopriL 10 MG TAB PO SCH (08:16)
[2022-04-25] MEDS: TOPIRAMATE 25 MG TAB PO SCH ×2 (08:16→20:18)
[2022-04-25] MEDS: ESCITALOPRAM 20 MG TAB PO SCH (08:16)
[2022-04-25] MEDS: buPROPion XL 150 MG TAB.ER.24H PO SCH (08:16)
[2022-04-25 08:55] LABS: Basophils # (A) 0.06 X 10*3/uL (0.00-0.10); Basophils % (A) 0.6 %; Eosinophils # (A) 0.26 X 10*3/uL (0.04-0.35); Eosinophils % (A) 2.4 %; HCT 33.6 % (37.2-46.3); HGB 10.3 g/dL (12.0-15.0); Immature Grans, Automated 0.7 %; Lymphocytes # (A) 2.88 X 10*3/uL (0.90-5.00); Lymphocytes % (A) 26.8 %; MCH 27.3 pg (27.0-32.0); MCHC 30.7 g/dL (32.0-37.0); MCV 89.1 fL (80.0-97.0); Monocytes # (A) 0.77 X 10*3/uL (0.20-1.00); Monocytes % (A) 7.2 %; NRBC Per 100 WBC 0 /100 WBCS (0.0-0.0); Neutrophils # (A) 6.69 X 10*3/uL (1.80-7.70); Neutrophils % (A) 62.3 %; Platelet Count 229 X 10*3/uL (140-440); RBC 3.77 X 10*6/uL (4.10-5.20); RDW 17.2 % (11.5-14.5); WBC 10.73 X 10*3/uL (4.50-10.00)
[2022-04-25] MEDS: KETOROLAC 15 MG/ML 1 ML VIAL IVP PRN ×2 (09:01→16:36)
--- NOTE | 2022-04-25 09:10 | P.PN ---
Subjective Progress Note Date: 04/25/22 Principal diagnosis: RLE weakness, RLE numbness Patient seen and examined interval changes overnight still complains of weakness numbness in her right lower extremity has not been out of bed. Denies any bowel or bladder issues denies any perineal numbness or tingling Objective - Vital Signs Vital signs: Vital Signs Temp 98.1 F 04/25/22 08:00 Pulse 85 04/25/22 08:00 Resp 18 04/25/22 08:00 BP 153/94 04/25/22 08:00 Pulse Ox 98 04/25/22 08:00 FiO2 Intake & Output 04/24/22 04/25/22 04/25/22 18:59 06:59 18:59 Other: Voiding Method Toilet # Voids 3 2 - Exam Exam repeated unchanged Patient is alert and oriented 3 appears well-nourished well-hydrated is in no acute distress. They do not appear septic. There is no TTP Lower extremities with 5 out of 5 strength in all major muscle groups except the right lower extremity where she has antigravity strength in the right lower extremity and hip flexion knee flexion-extension she has good dorsiflexion plantar flexion but is difficult for her to do secondary to the swelling Upper extremities show 5/5 strength in all major muscle groups. There is FROM that is painless of the b/l UE and LE in all major joints. They are intact to light touch sensation in C5 to T1 and L2 to S1 nerve distribution. DTR 2/4 all upper and lower extremities Patient has palpable dorsalis pedis was posterior tibial pulses. Palpable Rad Ulnar pulses b/l Compartments are soft and compressible. Patient shows a negative Homans Negative clonus Negative Babinski's Negative Hoffmans Cranial nerves II through XII are grossly intact. - Labs CBC & Chem 7: 04/25/22 05:43 04/24/22 00:40 Labs: Abnormal Lab Results - Last 24 Hours (Table) 04/25/22 Range/Units 05:43 WBC 10.73 H (4.50-10.00) X 10*3/uL RBC 3.77 L (4.10-5.20) X 10*6/uL Hgb 10.3 L (12.0-15.0) g/dL Hct 33.6 L (37.2-46.3) % MCHC 30.7 L (32.0-37.0) g/dL RDW 17.2 H (11.5-14.5) % Immature Gran # 0.07 H (0.00-0.04) X 10*3/uL Assessment and Plan Assessment: 52 yo female RLE weakness, numbness RLE swelling, Edema Plan: -Awaiting MRI to be uploaded -Continue conservative measures -Recommend trial of Decadron
[2022-04-25 11:38] LABS: Magnesium 2.2 mg/dL (1.5-2.4); Phosphorus 3.1 mg/dL (2.4-5.1)
[2022-04-25 11:46] LABS: African American GFR (CKD) 92.5 (60.0-200.0); Albumin 3.1 g/dL (3.8-4.9); Albumin/Globulin Ratio 1.73 (1.60-3.17); Anion Gap 8.9 mmol/L (10.00-18.00); BUN/Creat Ratio 12.69 Ratio (12.00-20.00); Blood Urea Nitrogen 10.8 mg/dL (9.0-27.0); Calcium 8.2 mg/dL (8.7-10.3); Carbon Dioxide 25.4 mmol/L (20.0-27.5); Globulin 1.8 g/dL (1.6-3.3); Non-African American GFR(CKD) 79.8 (60.0-200.0); Potassium 3.9 mmol/L (3.5-5.5); Total Bilirubin 0.2 mg/dL (0.30-1.20); Total Protein 4.9 g/dL (6.2-8.2)
--- NOTE | 2022-04-25 15:20 | P.PN ---
Subjective Progress Note Date: 04/25/22 Hospital course: Patient is a Very pleasant 52-year-old female with a past medical history of hypertension. She presented to the emergency department with the chief complaint of right lower extremity numbness and pain. [place] of excessive drinking on 04/11/22 awakening on 04/12/22 with inability to move her right lower extremity. Patient does report having excessive alcohol use that evening and was reportedly found down on the ground by her boyfriend approximately 1-2 hours after she reports "passing out in bed". patient states since she was unable to move her right leg or apply any pressure on it she was taken to [facility] and evaluated in their emergency department where she was later transferred to [facility] for an MRI. Patient reports she was later diagnosed with myolitis and discharged home. Patient reports she remains unable to move her right lower extremity and continues to have persistent numbness and now a tingling painful sensation.patient underwent evaluation in the emergency department, CBC revealing mild leukocytosis with WBC count of 12.3, coags normal findings, BMP unremarkable. Lactate 1.4. Liver profile revealing elevated AST of 38 and ALT of 52. Creatinine kinase was elevated at 217 upon review of previous hospitals labs creatinine kidneys was 6872 on 04/15/22.CTA aorta with runoff revealed no evidence of complete arterial occlusion but did reveal diffuse subcutaneous edema around the right leg and minimal edema around the left leg. venous Doppler negative for DVT of the right leg.EKG was completed showing normal sinus rhythm at 65 bpm.x-ray lumbar spine negative for acute fracture or dislocation. Patient was admitted under our services with consultation to neurology and vascular surgery. Imaging completed at [facility]: X-ray right foot revealing soft tissue swelling over the dorsum of the forefoot with no fracture, subluxation, or dislocation. MRI brain negative for acute intercranial abnormality with an incidental note of a pineal cyst MRI lumbar spine with and without contrast revealing moderate neural foraminal narrowing bilaterally at L4 through L5, mild neural foraminal narrowing bilaterally from L2 to L4, mild degenerative facet arthropathy on the right at L4 through L5 and again L5 through S1 with mild facet edema/enhancement on the right at L4 through L5 Right lower extremity Doppler negative for DVT CT lumbar spine: Negative for acute process, showing 3 mm nonobstructing calculus in the right kidney. Physical exam: Patient seen and fully evaluated at the bedside this morning. She continues to report complete numbness and weakness of right lower extremity. Had long discussion with patient regarding weakness and numbness possibly secondary to myositis with neuropraxia which may take 2-3 months to heal. Orthopedic surgery following and is recommending a trial of Decadron and orders place at this time. We will continue to monitor with orthopedic surgery recommendations at this time. Patient to be evaluated by physical and occupational therapy prior to discharge. Vital signs reviewed and stable. General: Nontoxic, no distress and appears stated age. Derm: Skin warm and dry, normal coloration for ethnicity.patient with bruising generalized over upper and lower extremities. Moderate bruising to right breast breast and right lateral ankle and mild bruising to left hip. Head: Atraumatic, normocephalic and symmetric. Eyes: EOMs intact, no lid lag, and anicteric sclera Mouth: no lip lesions, mucus membranes moist Cardiovascular: regular rate and rhythm with normal S1S2, no murmur, positive posterior tibial pulses bilaterally, and cap refill < 2 seconds. Lungs: Respirations even, regular, and unlabored on room air. Lungs CTA bilaterally, no rhonchi, no rales, no wheezing, and no accessory muscle usage. Abdominal: soft, nontender to palpation, no guarding, no appreciable organom egaly Ext: No gross muscle atrophy, bilateral lower extremity edema right greater than left, no contractures Neuro: Speech clear, face symmetrical and CN II-XII grossly intact with no noted focal neuro deficits. sensation intact to painful stimuli, however patient reports loss of sensation to light or mild touch in continued decreased movement with right lower extremity. Psych: Alert and oriented to person, place, time, and situation. Appropriate and pleasant affect. Assessment and Plan of Care: Myositis with Neuropraxia. Right lower extremity weakness, swelling, numbness, and tingling status post fall on 04/12/22. -Orthopedic surgery following recommended trial of Decadron -Vascular surgery evaluated recommending no need for vascular surgical interventions at this time. -Neuro checks every 4 hours -Neurovascular checks right lower extremity every 2-4 hours -CK remains elevated at 217 upon review of previous hospital's labs CK was 6872 on 04/15/22. -Fall precautions -PT/OT consult Hypertension Monitor vital signs and continue daily medication regimen with lisinopril. Depression and anxiety Continue daily medication regimen with Lexapro, Wellbutrin and Topamax CODE STATUS: Full code DVT prophylaxis: heparin Discussed with: patient and RN Anticipated discharge date: clinical course to determine Anticipated discharge place: home A total of 39 minutes was spent on the care of this complex patient more than 50% of the time was spent in counseling and care coordination. I reviewed the documentation as provided by the MARIELLA above, who is the original author of this note. I agree with the documented assessment and plan, with the following changes: none Objective - Vital Signs Vital signs: Vital Signs Temp 98.1 F 04/25/22 08:00 Pulse 85 04/25/22 08:00 Resp 18 04/25/22 08:00 BP 153/94 04/25/22 08:00 Pulse Ox 98 04/25/22 08:00 FiO2 Intake & Output 04/24/22 04/25/22 04/25/22 18:59 06:59 18:59 Other: Voiding Method Toilet # Voids 3 2 - Labs CBC & Chem 7: 04/25/22 05:43 04/25/22 05:43
[2022-04-25] MEDS: DEXAMETHASONE SOD PHOSPHATE 4 MG/ML 1 ML VIAL IVP SCH ×2 (16:36→20:18)
[2022-04-25] MEDS: HYDROmorphone 1 MG/ML 1 ML SYRINGE IVP PRN (22:20)
[2022-04-26] MEDS: DEXAMETHASONE SOD PHOSPHATE 4 MG/ML 1 ML VIAL IVP SCH ×6 (00:39→21:34)
[2022-04-26] MEDS: HEPARIN SODIUM,PORCINE/PF 5,000 UNIT/0.5 ML SYRINGE SQ SCH ×3 (00:40→17:51)
[2022-04-26] MEDS: buPROPion XL 150 MG TAB.ER.24H PO SCH (08:33)
[2022-04-26] MEDS: FAMOTIDINE 20 MG TAB PO SCH ×2 (08:33→21:34)
[2022-04-26] MEDS: GABAPENTIN 300 MG CAP PO SCH ×2 (08:33→21:34)
[2022-04-26] MEDS: KETOROLAC 15 MG/ML 1 ML VIAL IVP PRN ×2 (08:33→17:51)
[2022-04-26] MEDS: ESCITALOPRAM 20 MG TAB PO SCH (08:33)
[2022-04-26] MEDS: lisinopriL 10 MG TAB PO SCH (08:33)
[2022-04-26] MEDS: TOPIRAMATE 25 MG TAB PO SCH ×2 (08:33→21:34)
[2022-04-26] MEDS ORDERED: ALPRAZolam 1 MG TAB PO STA (13:52)
--- NOTE | 2022-04-26 14:30 | P.PN ---
Subjective Progress Note Date: 04/26/22 Hospital course: Patient is a Very pleasant 52-year-old female with a past medical history of hypertension. She presented to the emergency department with the chief complaint of right lower extremity numbness and pain. Patient [place] evening of excessive drinking on 04/11/22 awakening on 04/12/22 with inability to move her right lower extremity. Patient does report having excessive alcohol use that evening and was reportedly found down on the ground by her boyfriend approximately 1-2 hours after she reports "passing out in bed". patient states since she was unable to move her right leg or apply any pressure on it she was taken to [facility] and evaluated in their emergency department where she was later transferred to [facility] for an MRI. Patient reports she was later diagnosed with myolitis and discharged home. Patient reports she remains unable to move her right lower extremity and continues to have persistent numbness and now a tingling painful sensation.patient underwent evaluation in the emergency department, CBC revealing mild leukocytosis with WBC count of 12.3, coags normal findings, BMP unremarkable. Lactate 1.4. Liver profile revealing elevated AST of 38 and ALT of 52. Creatinine kinase was elevated at 217 upon review of previous hospitals labs creatinine kidneys was 6872 on 04/15/22.CTA aorta with runoff revealed no evidence of complete arterial occlusion but did reveal diffuse subcutaneous edema around the right leg and minimal edema around the left leg. venous Doppler negative for DVT of the right leg.EKG was completed showing normal sinus rhythm at 65 bpm.x-ray lumbar spine negative for acute fracture or dislocation. Patient was admitted under our services with consultation to neurology and vascular surgery. Imaging completed at [facility]: X-ray right foot revealing soft tissue swelling over the dorsum of the forefoot with no fracture, subluxation, or dislocation. MRI brain negative for acute intercranial abnormality with an incidental note of a pineal cyst MRI lumbar spine with and without contrast revealing moderate neural foraminal narrowing bilaterally at L4 through L5, mild neural foraminal narrowing bilaterally from L2 to L4, mild degenerative facet arthropathy on the right at L4 through L5 and again L5 through S1 with mild facet edema/enhancement on the right at L4 through L5 Right lower extremity Doppler negative for DVT CT lumbar spine: Negative for acute process, showing 3 mm nonobstructing calculus in the right kidney. Physical exam: Patient seen and fully evaluated at the bedside this morning. She continues to report complete numbness and weakness of right lower extremity and has had no improvement since initiation of Decadron. Awaiting recommendations from orthopedic surgery team, will continue Decadron at this time pending their recommendations. Again discussed with patient that this numbness is likely secondary to myositis with neuropraxia which may take 2-3 months to heal. Patient also reports feeling very anxious regarding home problems with her boyfriend and currently being in the hospital. Patient to be evaluated by physical and occupational therapy prior to discharge, likely discharge within the next 24-48 hours pending orthopedic surgery recommendations. Vital signs reviewed and stable. General: Nontoxic, no distress and appears stated age. Derm: Skin warm and dry, normal coloration for ethnicity.patient with bruising generalized over upper and lower extremities. Moderate bruising to right breast breast and right lateral ankle and mild bruising to left hip. Head: Atraumatic, normocephalic and symmetric. Eyes: EOMs intact, no lid lag, and anicteric sclera Mouth: no lip lesions, mucus membranes moist Cardiovascular: regular rate and rhythm with normal S1S2, no murmur, positive posterior tibial pulses bilaterally, and cap refill < 2 seconds. Lungs: Respirations even, regular, and unlabored on room air. Lungs CTA bilaterally, no rhonchi, no rales, no wheezing, and no accessory muscle usage. Abdominal: soft, nontender to palpation, no guarding, no appreciable organomegaly Ext: No gross muscle atrophy, bilateral lower extremity edema right greater than left, no contractures Neuro: Speech clear, face symmetrical and CN II-XII grossly intact with no noted focal neuro deficits. sensation intact to painful stimuli, however patient reports loss of sensation to light or mild touch in continued with decreased movement in right lower extremity. Psych: Alert and oriented to person, place, time, and situation. Appropriate and pleasant affect. Assessment and Plan of Care: Myositis with Neuropraxia. Right lower extremity weakness, swelling, numbness, and tingling status post fall on 04/12/22. -MRI lumbar spine with and without contrast completed at [facility] revealing moderate neural foraminal narrowing bilaterally at L4 through L5, mild neural foraminal narrowing bilaterally from L2 to L4, mild degenerative facet arthropathy on the right at L4 through L5 and again L5 through S1 with mild facet edema/enhancement on the right at L4 through L5 -Orthopedic surgery following recommended trial of Decadron -Vascular surgery evaluated recommending no need for vascular surgical interventions at this time. -Neuro checks every 4 hours -Neurovascular checks right lower extremity every 2-4 hours -Fall precautions -PT/OT consult Hypertension Monitor vital signs and continue daily medication regimen with lisinopril. Depression and anxiety Continue daily medication regimen with Lexapro, Wellbutrin and Topamax CODE STATUS: Full code DVT prophylaxis: heparin Discussed with: patient and RN Anticipated discharge date: clinical course to determine Anticipated discharge place: Home A total of 35 minutes was spent on the care of this complex patient more than 50% of the time was spent in counseling and care coordination. I reviewed the documentation as provided by the MARIELLA above, who is the original author of this note. I agree with the documented assessment and plan, with the following changes: none Objective - Vital Signs Vital signs: Vital Signs Temp 97.4 F L 04/26/22 08:00 Pulse 78 04/26/22 08:00 Resp 18 04/26/22 08:00 BP 142/81 04/26/22 08:00 Pulse Ox 96 04/26/22 08:00 FiO2 Intake & Output 04/25/22 04/26/22 04/26/22 18:59 06:59 18:59 Other: # Voids 3 2 - Labs CBC & Chem 7: 04/25/22 05:43 04/25/22 05:43 Labs: Abnormal Lab Results - Last 24 Hours (Table) 04/25/22 Range/Units 05:43 Anion Gap 8.90 L (10.00-18.00) mmol/L Calcium 8.2 L (8.7-10.3) mg/dL Total Bilirubin 0.20 L (0.30-1.20) mg/dL ALT 48 H (8-44) U/L Total Protein 4.9 L (6.2-8.2) g/dL Albumin 3.1 L (3.8-4.9) g/dL
[2022-04-27] MEDS: HYDROmorphone 1 MG/ML 1 ML SYRINGE IVP PRN ×3 (00:35→23:41)
[2022-04-27] MEDS: HEPARIN SODIUM,PORCINE/PF 5,000 UNIT/0.5 ML SYRINGE SQ SCH ×4 (00:36→23:32)
[2022-04-27] MEDS: DEXAMETHASONE SOD PHOSPHATE 4 MG/ML 1 ML VIAL IVP SCH ×3 (03:11→14:31)
[2022-04-27] MEDS: ESCITALOPRAM 20 MG TAB PO SCH (08:18)
[2022-04-27] MEDS: lisinopriL 10 MG TAB PO SCH (08:19)
[2022-04-27] MEDS: GABAPENTIN 300 MG CAP PO SCH ×2 (08:19→21:11)
[2022-04-27] MEDS: buPROPion XL 150 MG TAB.ER.24H PO SCH (08:19)
[2022-04-27] MEDS: FAMOTIDINE 20 MG TAB PO SCH ×2 (08:19→21:11)
[2022-04-27] MEDS: TOPIRAMATE 25 MG TAB PO SCH ×2 (08:19→21:12)
--- NOTE | 2022-04-27 08:32 | P.PN ---
Subjective Progress Note Date: 04/27/22 Principal diagnosis: RLE weakness RLE numbness Patient seen and examined at bedside. Patient was sitting up eating breakfast and tolerating well. She states that she has been ambulating with walker into the restroom. Patient states that through the night she has noticed some numbness to the lateral portion of her left calf. Informed patient that we are awaiting MRI results to further develop a plan of care for her. She verbalizes understanding. Patient denies any f/c/sob/cp. Objective - Vital Signs Vital signs: Vital Signs Temp 98.4 F 04/27/22 08:00 Pulse 70 04/27/22 08:00 Resp 16 04/27/22 08:00 BP 117/80 04/27/22 08:00 Pulse Ox 98 04/27/22 08:00 FiO2 Intake & Output 04/26/22 04/27/22 04/27/22 18:59 06:59 18:59 Other: # Voids 3 2 - Exam Physical Examination General: The patient is awake and alert, in no acute distress Skin: Skin is warm and dry with no obvious rashes or lesions. Hairy patches absent, no dorsal skin dimples, no cafe au lait spots, and no surgical incisions. Eye: Pupils are equal, round and reactive to light, extra-ocular movements are intact; there is normal conjunctiva bilaterally. Neck: The neck is supple, there is no tenderness and ROM intact. Cardiovascular: There is a regular rate and rhythm. No murmur, rub or gallop is appreciated. Respiratory: Lungs are clear to auscultation, respirations are non-labored, breath sounds are equal. Gastrointestinal: Soft, non-distended, non-tender abdomen . Back: There is no tenderness to palpation in the midline, paralumbar, parathoracic or buttocks region. There is no obvious deformity . Musculoskeletal: ROM limited in right lower extremity hip and knee secondary to swelling and stiffness. Shoulder abduction 5/5, elbow flexors 5/5, wrist dorsiflexors 5/5. finger abductor 5/5, drill runner 5/5, hip flexor 5/5, knee flexor 5/5, ankle dorsiflexor 5/5, ankle plantarflexion 5/5 and extensor hallucis 5/5. Neurological: CN 2-12 intact. There are no obvious motor or sensory deficits. M ovement and coordination equal and intact. Sensory exam to light touch intact C5-T1 and intact from L2-S1. Reflexes 2/4 in bilateral upper and lower extremities. Negative Hoffmans, babinski, and clonus signs. Psychiatric: Cooperative, appropriate mood & affect, normal judgment. - Labs CBC & Chem 7: 04/25/22 05:43 04/25/22 05:43 Assessment and Plan Assessment: 52 yo female RLE weakness, numbness RLE swelling, Edema Plan: Plan: -Appreciate regulatory affairs consultant and team management. -Awaiting MRI of the thoracic and lumbar spine -Continue with conservative measures -Continue with IV decadron *I reviewed and discussed this case with my attending Dr. Leal, whom has reviewed this chart and films and is in agreement with assessment and plan of care as outlined above. I have personally seen and examined the patient, performed the documentation and the assessment and plan as written. Number of minutes spent on the visit: 30m. Time with Patient: Greater than 30
[2022-04-27] MEDS ORDERED: ERGOCALCIFEROL 1,250 MCG (50,000 IU) CAPSULE PO SCH (09:00)
--- NOTE | 2022-04-27 14:02 | P.PN ---
Subjective Progress Note Date: 04/27/22 Hospital course: Patient is a Very pleasant 52-year-old female with a past medical history of hypertension. She presented to the emergency department with the chief complaint of right lower extremity numbness and pain. Patient [place] of excessive drinking on 04/11/22 awakening on 04/12/22 with inability to move her right lower extremity. Patient does report having excessive alcohol use that evening and was reportedly found down on the ground by her boyfriend approximately 1-2 hours after she reports "passing out in bed". patient states since she was unable to move her right leg or apply any pressure on it she was taken to [facility] and evaluated in their emergency department where she was later transferred to [facility] for an MRI. Patient reports she was later diagnosed with myolitis and discharged home. Patient reports she remains unable to move her right lower extremity and continues to have persistent numbness and now a tingling painful sensation.patient underwent evaluation in the emergency department, CBC revealing mild leukocytosis with WBC count of 12.3, coags normal findings, BMP unremarkable. Lactate 1.4. Liver profile revealing elevated AST of 38 and ALT of 52. Creatinine kinase was elevated at 217 upon review of previous hospitals labs creatinine kidneys was 6872 on 04/15/22.CTA aorta with runoff revealed no evidence of complete arterial occlusion but did reveal diffuse subcutaneous edema around the right leg and minimal edema around the left leg. Venous Doppler negative for DVT of the right leg.EKG was completed showing normal sinus rhythm at 65 bpm.x-ray lumbar spine negative for acute fracture or dislocation. Patient was admitted under our services with consultation to neurology and vascular surgery. Imaging completed at [facility]: X-ray right foot revealing soft tissue swelling over the dorsum of the forefoot with no fracture, subluxation, or dislocation. MRI brain negative for acute intercranial abnormality with an incidental note of a pineal cyst MRI lumbar spine with and without contrast revealing moderate neural foraminal narrowing bilaterally at L4 through L5, mild neural foraminal narrowing bilaterally from L2 to L4, mild degenerative facet arthropathy on the right at L4 through L5 and again L5 through S1 with mild facet edema/enhancement on the right at L4 through L5 Right lower extremity Doppler negative for DVT CT lumbar spine: Negative for acute process, showing 3 mm nonobstructing calculus in the right kidney. Physical exam: Patient seen and fully evaluated at the bedside this morning. She continues to report complete numbness and weakness of right lower extremity and reports having reports very minimal improvement. She is scheduled to undergo an MRI of thoracic and lumbar spine without contrast today at noon. Patient denies having any other complaints at this time. Vital signs reviewed and stable. General: Nontoxic, no distress and appears stated age. Derm: Skin warm and dry, normal coloration for ethnicity.patient with bruising generalized over upper and lower extremities. Moderate bruising to right breast breast and right lateral ankle and mild bruising to left hip. Head: Atraumatic, normocephalic and symmetric. Eyes: EOMs intact, no lid lag, and anicteric sclera Mouth: no lip lesions, mucus membranes moist Cardiovascular: regular rate and rhythm with normal S1S2, no murmur, positive posterior tibial pulses bilaterally, and cap refill < 2 seconds. Lungs: Respirations even, regular, and unlabored on room air. Lungs CTA bilaterally, no rhonchi, no rales, no wheezing, and no accessory muscle usage. Abdominal: soft, nontender to palpation, no guarding, no appreciable organomegaly Ext: No gross muscle atrophy, bilateral lower extremity edema right greater than left, no contractures Neuro: Speech clear, face symmetrical and CN II-XII grossly intact with no noted focal neuro deficits. sensation intact to painful stimuli, however patient reports loss of sensation to light or mild touch in continued with decreased movement in right lower extremity. Psych: Alert and oriented to person, place, time, and situation. Appropriate and pleasant affect. Assessment and Plan of Care: Myositis with Neuropraxia. Right lower extremity weakness, swelling, numbness, and tingling status post fall on 04/12/22. -MRI lumbar spine with and without contrast completed at [facility] revealing moderate neural foraminal narrowing bilaterally at L4 through L5, mild neural foraminal narrowing bilaterally from L2 to L4, mild degenerative facet arthropathy on the right at L4 through L5 and again L5 through S1 with mild facet edema/enhancement on the right at L4 through L5 -Orthopedic surgery following recommended trial of Decadron -Vascular surgery evaluated recommending no need for vascular surgical interventions at this time. -Neuro checks every 4 hours -Neurovascular checks right lower extremity every 2-4 hours -Fall precautions -PT/OT consult Hypertension Monitor vital signs and continue daily medication regimen with lisinopril. Depression and anxiety Continue daily medication regimen with Lexapro, Wellbutrin and Topamax CODE STATUS: Full code DVT prophylaxis: heparin Discussed with: patient and RN Anticipated discharge date: clinical course to determine Anticipated discharge place: Home A total of 35 minutes was spent on the care of this complex patient more than 50% of the time was spent in counseling and care coordination. Objective - Vital Signs Vital signs: Vital Signs Temp 98.4 F 04/27/22 08:00 Pulse 70 04/27/22 08:00 Resp 16 04/27/22 08:00 BP 117/80 04/27/22 08:00 Pulse Ox 98 04/27/22 08:00 FiO2 Intake & Output 04/26/22 04/27/22 04/27/22 18:59 06:59 18:59 Other: # Voids 3 2 - Labs CBC & Chem 7: 04/25/22 05:43 04/25/22 05:43
--- NOTE | 2022-04-27 14:05 | MR ---
EXAMINATION TYPE: MR tspine/lspine wo con DATE OF EXAM: 04/27/2022 COMPARISON: CT 04/24/2022 HISTORY: RLE weakness TECHNIQUE: Multiplanar, multisequence imaging of the thoracic and lumbar spine is performed without I V contrast. FINDINGS: THORACIC: The thoracic vertebral bodies have preserved heights and alignment. The osseous structure have normal signal intensity. Thoracic spinal cord appears unremarkable. There is no evidence of extradural defe cts or central spinal canal narrowing at any thoracic vertebral body level. Intervertebral discs dem onstrate normal signal intensity. T9 vertebral body hemangioma. T4-T5: Disc bulge with mild narrowing of the ventral subarachnoid space. The spinal canal is patent. The neural foramen are patent. T5-T6: Right central disc protrusion which narrows the ventral subarachnoid space. (Series 701 image 4) T7-T8: Left central disc protrusion which impresses upon the spinal cord. (Series 601 image 17) LUMBAR: Alignment: The lumbar vertebral bodies have preserved heights and alignment. Cord: The conus medullaris and the distal spinal cord appear unremarkable with regards to their signa l intensity and morphology. Bones/Discs: High T1 and high T2 slightly heterogenous signal in the L3 and L4 vertebral bodies consi stent with vertebral body hemangiomas. L1-L2: No significant disc pathology. Spinal canal is patent. The neural foramen are patent. L2-L3: Spinal canal is patent. Left foraminal disc bulging without significant spinal canal stenosis and moderate left neural foraminal stenosis. The right neural foramen is patent. L3-L4: Spinal canal is patent. Facet joint arthropathy results in mild to moderate bilateral neural f oraminal stenosis, Right extraforaminal protrusion which impresses upon the exiting right nerve. (Ser ies 1301 image 12) L4-L5: No significant disc pathology. Spinal canal is patent. Facet joint arthropathy results in mild to moderate bilateral neural foraminal stenosis, left greater than right. Right extra foraminal disc bulging which impresses upon the exiting nerves. (Series 1301 image 6) L5-S1: No significant disc pathology. Spinal canal is patent. The neural foramen are patent. IMPRESSION: 1. T7-T8 left central disc protrusion which impresses upon the spinal cord. 2. L3-L4 and L4-L5 right extraforaminal disc protrusion which impresses upon the right exiting nerves at these levels. 3. No evidence of significant spinal canal stenosis. 4. Multilevel disc degeneration with associated osteoarthritic changes. 5. Vertebral body hemangiomas L3-L4 and T8.
[2022-04-27] MEDS: KETOROLAC 15 MG/ML 1 ML VIAL IVP PRN (14:28)
[2022-04-28] MEDS: DEXAMETHASONE SOD PHOSPHATE 4 MG/ML 1 ML VIAL IVP SCH ×4 (01:42→16:06)
--- NOTE | 2022-04-28 07:12 | P.PN ---
Progress Note - Text Progress Note Date: 04/28/22 patient seen and examined. MRI is reviewed. There is some mild stenotic features at L4 5 L1-2 and T 12 however no lesions or stenotic features that would explain her unilateral complete leg symptoms. Would not recommend any spine surgical intervention at this time. Trial steroids medical management
[2022-04-28] MEDS: FAMOTIDINE 20 MG TAB PO SCH (08:43)
[2022-04-28] MEDS: HEPARIN SODIUM,PORCINE/PF 5,000 UNIT/0.5 ML SYRINGE SQ SCH ×2 (08:44→16:05)
[2022-04-28] MEDS: ESCITALOPRAM 20 MG TAB PO SCH (08:44)
[2022-04-28] MEDS: buPROPion XL 150 MG TAB.ER.24H PO SCH (08:44)
[2022-04-28] MEDS: lisinopriL 10 MG TAB PO SCH (08:44)
[2022-04-28] MEDS: GABAPENTIN 300 MG CAP PO SCH (08:44)
[2022-04-28] MEDS: TOPIRAMATE 25 MG TAB PO SCH (08:45)
[2022-04-28] MEDS: HYDROmorphone 1 MG/ML 1 ML SYRINGE IVP PRN (10:46)
[2022-04-28 13:33] VITALS: BP 108/69; PULSE 73; RESP 18; TEMP 98.3
--- NOTE | 2022-04-28 14:38 | P.DS ---
Providers Date of admission: 04/24/22 02:44 Expected date of discharge: 04/28/22 Attending physician: Willis Martell MD Consults: 04/24/22 02:44 Consult Physician Routine Consulting Provider: Christian Leal Consult Reason/Comments: RLEweakness,numbness Do you want consulting provider notified?: Yes Primary care physician: Rigo Fuller [employer] Course: Discharge Diagnosis: Myositis with Neuropraxia. Right lower extremity weakness, swelling, numbness, and tingling status post fall on 04/12/22. Continue Medrol Dosepak and follow up outpatient with orthopedic surgery for continued monitoring/management. Hypertension. Monitor vital signs and continue daily medication regimen with lisinopril. Depression and anxiety. Continue daily medication regimen with Lexapro, Wellbutrin and Topamax. Hospital Course: Patient is a very pleasant 52-year-old female with a past medical history of hypertension. She presented to the emergency department with the chief complaint of right lower extremity numbness and pain. Patient [place] evening of excessive drinking on 04/11/22 awakening on 04/12/22 with inability to move her right lower extremity. Patient does report having excessive alcohol use that evening and was reportedly found down on the ground by her boyfriend approximately 1-2 hours after she reports "passing out in bed". patient states since she was unable to move her right leg or apply any pressure on it she was taken to [facility] and evaluated in their emergency department where she was later transferred to [facility] for an MRI. Patient reports she was later diagnosed with myolitis and discharged home. Patient reports she remains unable to move her right lower extremity and continues to have persistent numbness and now a tingling painful sensation.patient underwent evaluation in the emergency department, CBC revealing mild leukocytosis with WBC count of 12.3, coags normal findings, BMP unremarkable. Lactate 1.4. Liver profile revealing elevated AST of 38 and ALT of 52. Creatinine kinase was elevated at 217 upon review of previous hospitals labs creatinine kidneys was 6872 on 04/15/22.CTA aorta with runoff revealed no evidence of complete arterial occlusion but did reveal diffuse subcutaneous edema around the right leg and minimal edema around the left leg. Venous Doppler negative for DVT of the right leg.EKG was completed showing normal sinus rhythm at 65 bpm.x-ray lumbar spine negative for acute fracture or dislocation. Patient was admitted under our services with consultation to orthospine surgery and vascular surgery. Lumbar spine x-ray was completed revealing no acute fracture or dislocation. MRI thoracic and lumbar spine completed revealing ET 9 vertebral body hemangioma, T4 through T5 disc bulge with mild narrowing of the ventral subarachnoid space with a patent spinal canal, T5 through T6 right central disc protrusion with narrowing of the ventral subarachnoid space, and T7 through T8 left central disc protrusion possibly impressing upon the spinal cord, L3 through L4 and L4 through L5 right extraforaminal disc protrusion impressing upon the right exiting nerves at these levels with no evidence of significant spinal canal stenosis . MRI was reviewed by orthospine surgeon and discussed with patient. Orthospine surgeon is not recommending any surgical interventions at this time, recommending trial of steroids and continued medical management. Patient otherwise medically stable for discharge at this time. Patient discharged home on Medrol Dosepak and follow up outpatient with PCP in 1-2 days in orthopedic surgery in 1 week. Patient discharged home with [facility] and prescriptions placed for walker and wheelchair. Imaging completed at [facility]: X-ray right foot revealing soft tissue swelling over the dorsum of the forefoot with no fracture, subluxation, or dislocation. MRI brain negative for acute intercranial abnormality with an incidental note of a pineal cyst MRI lumbar spine with and without contrast revealing moderate neural foraminal narrowing bilaterally at L4 through L5, mild neural foraminal narrowing bilaterally from L2 to L4, mild degenerative facet arthropathy on the right at L4 through L5 and again L5 through S1 with mild facet edema/enhancement on the right at L4 through L5 Right lower extremity Doppler negative for DVT CT lumbar spine: Negative for acute process, showing 3 mm nonobstructing calculus in the right kidney. Physical exam: Vital signs reviewed and stable. General: Nontoxic, no distress and appears stated age. Derm: Skin warm and dry, normal coloration for ethnicity.patient with bruising generalized over upper and lower extremities. Moderate bruising to right breast breast and right lateral ankle and mild bruising to left hip. Head: Atraumatic, normocephalic and symmetric. Eyes: EOMs intact, no lid lag, and anicteric sclera Mouth: no lip lesions, mucus membranes moist Cardiovascular: regular rate and rhythm with normal S1S2, no murmur, positive posterior tibial pulses bilaterally, and cap refill < 2 seconds. Lungs: Respirations even, regular, and unlabored on room air. Lungs CTA bilaterally, no rhonchi, no rales, no wheezing, and no accessory muscle usage. Abdominal: soft, nontender to palpation, no guarding, no appreciable organomegaly Ext: No gross muscle atrophy, bilateral lower extremity edema right greater than left, no contractures Neuro: Speech clear, face symmetrical and CN II-XII grossly intact with no noted focal neuro deficits. Sensation intact to painful stimuli, however patient reports loss of sensation to light or mild touch in continued with decreased movement in right lower extremity. Psych: Alert and oriented to person, place, time, and situation. Appropriate and pleasant affect. A total of 35 minutes of time were spent preparing this complex discharge summary. Pt was discharged on 04/28/22 at 9:24 AM. Patient Condition at Discharge: Stable Plan - Discharge Summary Discharge Rx Participant: Yes New Discharge Prescriptions: New methylPREDNISolone Dose Pack [Medrol Dose Pack] 4 mg PO DIRECTED #21 tab Continue Topiramate 50 mg PO BID Naproxen [Naprosyn] 250 mg PO BID Ergocalciferol [Vitamin D2 (1250 Mcg = 04916 Iu)] 1,250 mcg PO MO Famotidine [Pepcid] 20 mg PO BID Escitalopram [Lexapro] 20 mg PO DAILY buPROPion XL [Wellbutrin XL] 150 mg PO DAILY lisinopriL [Zestril] 10 mg PO DAILY Gabapentin [Neurontin] 300 mg PO BID Galcanezumab-Gnlm [Emgality Pen] 120 mg SQ Q28D Discharge Medication List Topiramate 50 mg PO BID 02/14/14 [History] Ergocalciferol [Vitamin D2 (1250 Mcg = 48863 Iu)] 1,250 mcg PO MO 04/24/22 [History] Escitalopram [Lexapro] 20 mg PO DAILY 04/24/22 [History] Famotidine [Pepcid] 20 mg PO BID 04/24/22 [History] Gabapentin [Neurontin] 300 mg PO BID 04/24/22 [History] Galcanezumab-Gnlm [Emgality Pen] 120 mg SQ Q28D 04/24/22 [History] Naproxen [Naprosyn] 250 mg PO BID 04/24/22 [History] buPROPion XL [Wellbutrin XL] 150 mg PO DAILY 04/24/22 [History] lisinopriL [Zestril] 10 mg PO DAILY 04/24/22 [History] methylPREDNISolone Dose Pack [Medrol Dose Pack] 4 mg PO DIRECTED #21 tab 04/28/22 [Rx] Follow up Appointment(s)/Referral(s): [facility] [NON-STAFF] - As Needed (Call to arrange delivery of your wheelchair. ) Rigo Haider MD [Primary Care Provider] - 1-2 days (office not answering please call to schedule appointment ) [facility], [NON-STAFF] - 1-2 Days Christian Leal DO [Doctor of Osteopathic Medicine] - 05/04/22 10:20 am Patient Instructions/Handouts: Neurapraxia (GEN) Activity/Diet/Wound Care/Special Instructions: Discharge Disposition: HOME WITH HOME HEALTH SERVICES
== END 2022-04-28 16:17 | disposition home health service (06) | DRG 74 ==
LOC: EC 19:22 → 4SSUR 04-24 02:44
PROVIDERS: ADMIT Internal Medicine; ATTEND Internal Medicine
DX: S84.91XA Injury of unspecified nerve at lower leg level, right leg, initial encounter (principal); I10 Essential (primary) hypertension; F41.9 Anxiety disorder, unspecified; D64.9 Anemia, unspecified; F32.A Depression, unspecified; M60.9 Myositis, unspecified; M47.819 Spondylosis without myelopathy or radiculopathy, site unspecified; M48.061 Spinal stenosis, lumbar region without neurogenic claudication; M48.04 Spinal stenosis, thoracic region; X58.XXXA Exposure to other specified factors, initial encounter; Z72.89 Other problems related to lifestyle; Z79.899 Other long term (current) drug therapy; Z88.1 Allergy status to other antibiotic agents
CPT/HCPCS: 36415; 71275; 72114; 72146; 72148; 75635; 80053; 82550; 82553; 83605; 83735; 83880; 84100; 84484; 85025; 85610; 85730; 93005; 96374; 99285

== ENCOUNTER → 2022-04-23 | Outpatient (CLI) | payer SELFPAY ==
[2022-04-23 23:32] LABS: Basophils # (A) 0.05 X 10*3/uL (0.00-0.10); Basophils % (A) 0.4 %; Eosinophils # (A) 0.15 X 10*3/uL (0.04-0.35); Eosinophils % (A) 1.2 %; HCT 39.6 % (37.2-46.3); Immature Grans, Automated 0.6 %; Lymphocytes # (A) 2.92 X 10*3/uL (0.90-5.00); Lymphocytes % (A) 22.5 %; MCH 27.1 pg (27.0-32.0); MCHC 30.3 g/dL (32.0-37.0); MCV 89.4 fL (80.0-97.0); Mean Platelet Volume 11.3 fL (9.5-12.2); Monocytes # (A) 0.74 X 10*3/uL (0.20-1.00); Monocytes % (A) 5.7 %; NRBC Per 100 WBC 0 /100 WBCS (0.0-0.0); Neutrophils # (A) 9.05 X 10*3/uL (1.80-7.70); Neutrophils % (A) 69.6 %; Platelet Count 290 X 10*3/uL (140-440); RBC 4.43 X 10*6/uL (4.10-5.20); RDW 17.1 % (11.5-14.5); WBC 12.99 X 10*3/uL (4.50-10.00)
[2022-04-24 01:12] LABS: Erythrocyte Sedimentation Rate 18 mm/Hr (0-20)
[2022-04-24 04:47] LABS: C Reactive Protein 1.8 mg/dL (0.00-0.80)
[2022-04-24 05:41] LABS: African American GFR (CKD) 76.1 (60.0-200.0); Albumin 3.6 g/dL (3.8-4.9); Albumin/Globulin Ratio 1.57 (1.60-3.17); Anion Gap 17.8 mmol/L (10.00-18.00); Calcium 8.9 mg/dL (8.7-10.3); Carbon Dioxide 16.2 mmol/L (20.0-27.5); Globulin 2.3 g/dL (1.6-3.3); Non-African American GFR(CKD) 65.6 (60.0-200.0); Potassium 4.2 mmol/L (3.5-5.5); Total Bilirubin 0.2 mg/dL (0.30-1.20); Total Protein 5.9 g/dL (6.2-8.2)
[2022-04-24 12:37] LABS: Aldolase 4.3 U/L (1.2-7.6)
== END | disposition home or self-care (01) ==
LOC: LABWHC1 12:14
PROVIDERS: ATTEND Family Medicine
DX: M60.9 Myositis, unspecified (principal)
CPT/HCPCS: 36415; 80053; 82085; 82550; 83874; 85025; 85652; 86038; 86140

== ENCOUNTER → 2022-05-05 | Outpatient (CLI) | payer OTHER ==
--- NOTE | 2022-05-05 10:47 | US ---
EXAMINATION TYPE: US groin RT DATE OF EXAM: 05/05/2022 COMPARISON: NONE CLINICAL HISTORY: R60.0 Edema of right leg. Numbness/edema right leg. Rule out lymph nodes Technique grayscale imaging of the right groin with color Doppler flow. FINDINGS: lymph nodes right groin, largest = 2.2 x 0.6 x 1.7cm with a normal morphologic appearance. No evidenc e suspicious mass or organizing fluid collection. IMPRESSION: Normal-appearing right groin lymph nodes. No evidence of organizing fluid collection or m ass.
== END | disposition home or self-care (01) ==
LOC: RADUSWWP 10:08
PROVIDERS: ATTEND Family Medicine
DX: R60.0 Localized edema (principal)

== ENCOUNTER → 2022-07-17 | Outpatient (CLI) | payer OTHER ==
--- NOTE | 2022-07-18 03:07 | MR ---
EXAMINATION TYPE: MR sacrum/coccyx wo/w con DATE OF EXAM: 07/17/2022 COMPARISON: None HISTORY: Numbness in right leg since Mar. CONTRAST: Standard multiplanar, multisequence MRI departmental protocol images were obtained without contrast a nd with 12 mL intravenous Gadavist gadolinium contrast. The sacrum and coccyx segments have normal alignment. No fracture seen. No evidence of presacral claudette a. No evidence of a pelvic mass. Uterus is anteverted. The bladder distends smoothly. Sacroiliac join t spaces are normal. There is no evidence of sacral fracture. No focal bone destruction. The contrast images show no pathologic enhancement. IMPRESSION: Negative CT scan of the sacrum and coccyx. No fracture. No evidence of pelvic mass.
== END | disposition home or self-care (01) ==
LOC: RADMRIMAIN 21:00
PROVIDERS: ATTEND Orthopaedic Surgery
DX: M46.1 Sacroiliitis, not elsewhere classified (principal); M54.16 Radiculopathy, lumbar region; R20.0 Anesthesia of skin
CPT/HCPCS: 72197; A9585

== ENCOUNTER → 2022-08-12 | Outpatient (CLI) | payer OTHER ==
[2022-08-12 08:27] VITALS: BP 117/81; PULSE 75; RESP 18; TEMP 98
--- NOTE | 2022-08-12 15:36 | P.PAINCN ---
History of Present Illness - Reason for Consult Consult date: 08/12/22 - History of Present Illness This 52 years old female who was referred to [facility] pain clinic from Dr. Leal spine surgeon for evaluation, patient reported that she started having severe low back pain after she fell on her back 04/12/2022, and she was admitted to [facility], and then she was referred to [facility] and she patient was complaining of severe right low er extremity weakness and some swelling and numbness, she reported that the swelling improved currently she had severe right sided low back pain with radiation to the right buttock with some numbness tingling in the right lower extremity, denies any weakness she denies any fever or night sweats she denies any change in the bowel movement or urination She tried pain medication Lyrica she tried ice and heat and topical medication without any benefit she tried home exercises without any benefit Past Medical History Past Medical History: Hypertension Additional Past Medical History / Comment(s): Anemia, Hypoglycemia History of Any Multi-Drug Resistant Organisms: None Reported Past Surgical History: Cholecystectomy, Hernia Repair Past Anesthesia/Blood Transfusion Reactions: No Reported Reaction Smoking Status: Never smoker, Vaper - Past Family History Mother Family Medical History: Diabetes Mellitus Additional Family Medical History / Comment(s): heart surgery (mitral valve) , anemia Father Family Medical History: Diabetes Mellitus Medications and Allergies Home Medications Medication Instructions Recorded Confirmed Type Topiramate 50 mg PO BID 02/14/14 08/12/22 History Ergocalciferol [Vitamin D2 (1250 1,250 mcg PO MO 04/24/22 08/12/22 History Mcg = 38167 Iu)] Escitalopram [Lexapro] 20 mg PO DAILY 04/24/22 08/12/22 History Famotidine [Pepcid] 20 mg PO BID 04/24/22 08/12/22 History Galcanezumab-Gnlm [Emgality Pen] 120 mg SQ Q28D 04/24/22 08/12/22 History Naproxen [Naprosyn] 250 mg PO BID 04/24/22 08/12/22 History buPROPion XL [Wellbutrin XL] 150 mg PO DAILY 04/24/22 08/12/22 History lisinopriL [Zestril] 10 mg PO DAILY 04/24/22 08/12/22 History Pregabalin [Lyrica] 150 mg PO BID 08/12/22 08/12/22 History Allergies Allergy/AdvReac Type Severity Reaction Status Date / Time [place] [[facility] Allergy Rash/Hives Verified 08/12/22 08:15 Physical Exam Vitals: Vital Signs Temp Pulse Resp BP Pulse Ox 08/12/22 08:19 98.0 F 75 18 117/81 97 Intake and Output 08/12/22 08/12/22 08/12/22 06:59 14:59 22:59 Other: Weight 127.006 kg Physical Examinations : -Constitutiona : Cooperative , not in acute distress . -HEENT : nech : supple , no Lymphadenopathy , normal thyroid size . : eyes : no ptosis , no icterus, no photophobia . - neurologic : Cranial nerve II to XII intact , no focal neurological deffecit . -psychatric : alert , oriented X 3 , appropriate affect , intact judgment and insight . -Lymphatic : no Lymphadenopathy . - musculoskeltal : Lumber spine moter stegnth lower extremities ,thigh and legs 5/5 Right side , 5/5 Left side deep tendon reflexes : normal Knee Jerk , normal ankle Jerk lumber facet Loading Tet =positive Range of motion of the lumbar spine Flexion 30 degrees, extension 10 degrees strait leg raising test = positive at 45degree right Fabere test= positive Right , and positive LT . Sever tenderness over the Sacroiliac joint on the Right. Gaenslen test= positive right . Seated flexion test= positive right . Distraction test= positive right Sacroiliac compression test= positive right Results Comments: MRI of the lumbar spine as before facet joint arthropathy and bilateral foraminal stenosis L4 5 facet joint arthropathy and neuroforaminal stenosis Assessment and Plan Plan: Assessment and plan=1-right sacroiliitis. 2-lumbar radiculopathy. 3-lumbar spondylosis with lumbar facet arthropathy. she could benefit from right-sided sacroiliac joint steroid injection fluoroscopy guidance. If she had no benefit from the sacroiliac joint steroid injection today and would consider doing right-sided transforaminal epidural steroid injection at L3-4, and L4 5 Time with Patient: Greater than 30 PQRS Measure Charge Sheet Mode of Arrival: Ambulatory - Pain Location Right Lower Back Non-Pharmacological Interventions: Heat, Home Exercise, Ice, Inactivity, Position/Reposition, Stretching Pharmacological Interventions: Epidural, PRN Medication, Scheduled Medication PQRS Narrative: Smoking Status Current every day smoker Blood Pressure 117/81 Pain Intensity [Right Lower 8 Back] Scale Used Numeric (1 - 10) Hx Alcohol Use (MH) No Home Medications: Ambulatory Orders Topiramate 50 mg PO BID 02/14/14 Ergocalciferol [Vitamin D2 (1250 Mcg = 05473 Iu)] 1,250 mcg PO MO 04/24/22 Escitalopram [Lexapro] 20 mg PO DAILY 04/24/22 Famotidine [Pepcid] 20 mg PO BID 04/24/22 Galcanezumab-Gnlm [Emgality Pen] 120 mg SQ Q28D 04/24/22 Naproxen [Naprosyn] 250 mg PO BID 04/24/22 buPROPion XL [Wellbutrin XL] 150 mg PO DAILY 04/24/22 lisinopriL [Zestril] 10 mg PO DAILY 04/24/22 Pregabalin [Lyrica] 150 mg PO BID 08/12/22
== END ==
LOC: PNWHC3 07:47
PROVIDERS: ATTEND Specialist
DX: M46.1 Sacroiliitis, not elsewhere classified (principal); F17.200 Nicotine dependence, unspecified, uncomplicated; M47.26 Other spondylosis with radiculopathy, lumbar region; I10 Essential (primary) hypertension; Z88.1 Allergy status to other antibiotic agents
CPT/HCPCS: 99211

== ENCOUNTER 2022-09-01 06:50 | Day surgery (SDC) | payer OTHER ==
[~2022-09-01 06:50] MED LIST: LACTATED RINGERS 1,000 ML IV SCH; LIDOCAINE 1% (10MG/ML) FOR IV START INTRADERMA PRN
[2022-09-01] MEDS: LACTATED RINGERS 1,000 ML IV SCH ×2 (07:15→07:30)
[2022-09-01 07:46] VITALS: TEMP 97.3
[2022-09-01 07:46] LABS: Glucose,Whole Blood 93 mg/dL (70-110)
[2022-09-01] MEDS ORDERED: MIDAZOLAM 2 MG/2 ML VIAL IVP ONE (08:00)
[2022-09-01] MEDS ORDERED: fentaNYL (PF) 50 MCG/ML 2 ML AMP ONE (08:20)
[2022-09-01] MEDS ORDERED: methylPREDNISolone ACETATE 80 MG/ML 1 ML VIAL ONE (08:20)
[2022-09-01] MEDS ORDERED: ROPIVACAINE 5 MG/ML 20 ML AMPULE ONE (08:20)
--- NOTE | 2022-09-01 08:32 | P.PCN ---
Date of Procedure: 09/01/22 Procedure(s) Performed: Procedure= Right sacroiliac joints steroid injection under fluoroscopy guidance (fluoroscopy image stored on file in the radiology Department ) Preoperative diagnosis= 1- Right sacroiliitis 2-lumbar Radiculopathy 3-lumbar spondylosis with facet arthropathy Postoperative diagnosis=Same as preop Diagnosis . Complication = none Condition= stable Anesthesia= moderate sedation with intravenous fentanyl 50 micrograms . Sedation start time: 0 823 Sedation end time : 0 828 Indication for the procedure= patient complaining of low back pain , examination was positive for severe tenderness over the sacroiliac joints bilaterally and patient diagnosed with sacroiliitis, for this reason , she was good candidate for sacroiliac joint steroid injection. Description of the procedure= procedure risk and benefits discussed with the patient, including but not limited, risk of infection and bleeding, and ALLERGIC reaction to the medication and not complete pain relief and patient agreed with the preceding patient taken to the operating room, placed in prone position or standard monitors applied to the patient then after induction of anesthesia back prepped with chlorhexidine 3 times , Then under strict sterile technique, first I did the right sacroiliac joint the which was identified under fluoroscopy guidance been local infiltration of the skin and subcu interstitial with lidocaine 1% then 22-gauge 5 inches long Quincke Needle advanced slowly under fluoroscopy and placed in the right sacroiliac joint needle placement confirmed with AP and oblique and lateral view and after appropriate needle placement confirmed and after negative aspiration, or heme , then Ropivacaine 0.5% 5 mL, and 80 mg of Depo-Medrol mixed together and injected in the right sacroiliac joint after negative aspiration patient tolerated the procedure well without any complication.
[2022-09-01] MEDS ORDERED: IV FLUID CONTINUATION 950 ML IV ONE (08:33)
[2022-09-01 09:06] VITALS: BP 92/58; PULSE 63; RESP 18
--- NOTE | 2022-09-01 10:33 | FL ---
EXAMINATION TYPE: FL guided pain mgmt statistic DATE OF EXAM: 09/01/2022 FLUOROSCOPY Fluoroscopy time of 5 seconds was used during SI joint injection. 1 image/s document/s the procedure .
== END 2022-09-01 09:22 | disposition home or self-care (01) ==
LOC: ORPAIN 06:50
PROVIDERS: ATTEND Specialist
DX: M46.1 Sacroiliitis, not elsewhere classified (principal); M47.26 Other spondylosis with radiculopathy, lumbar region; Z88.8 Allergy status to other drugs, medicaments and biological substances
CPT/HCPCS: 81025; 27096; J2250; J1040; J3010; J2795

== ENCOUNTER 2022-09-14 08:58 | Day surgery (SDC) | payer OTHER ==
[2022-09-14 09:22] VITALS: TEMP 97.3
[2022-09-14] MEDS ORDERED: LIDOCAINE 2% INJ 20 MG/ML (2 ML VIAL) ONE (10:10)
[2022-09-14] MEDS ORDERED: PROPOFOL 10 MG/ML 20 ML VIAL IV ONE (10:10)
[2022-09-14 10:45] VITALS: RESP 16
--- NOTE | 2022-09-14 10:45 | P.PCN ---
Date of Procedure: 09/14/22 Preoperative Diagnosis: Anemia, history of ulcers, history of colon polyp, family history of colon cancer, screening Postoperative Diagnosis: Same Procedure(s) Performed: EGD and colonoscopy Anesthesia: MAC Pathology: none sent Condition: stable Disposition: PACU Description of Procedure: Patient's taken the endoscopy suite were gastroscope is passed per mouth to the third and fourth portions of the duodenum. She had some gastritis and a gastric ulcer in the past and currently has some anemia. The esophagus is without evid ence of esophagitis or mass lesion. GE junction is without inflammatory change. Small sliding hiatal hernia. Otherwise the stomach, pylorus and duodenum were without evidence of polyp, mass lesion, ulcer or other mucosal abnormality. She is then repositioned in a colonoscope is passed per rectum to the cecum. She had excellent prep. Plan - Discharge Summary Discharge Rx Participant: No New Discharge Prescriptions: No Action Topiramate 50 mg PO BID Famotidine [Pepcid] 20 mg PO BID Escitalopram [Lexapro] 20 mg PO DAILY buPROPion XL [Wellbutrin XL] 150 mg PO DAILY lisinopriL [Zestril] 10 mg PO DAILY Pregabalin [Lyrica] 150 mg PO BID Furosemide [Lasix] 40 mg PO DAILY Potassium Chloride [Klor-Con M20] 20 meq PO DAILY Discharge Medication List Topiramate 50 mg PO BID 02/14/14 [History] Escitalopram [Lexapro] 20 mg PO DAILY 04/24/22 [History] Famotidine [Pepcid] 20 mg PO BID 04/24/22 [History] buPROPion XL [Wellbutrin XL] 150 mg PO DAILY 04/24/22 [History] lisinopriL [Zestril] 10 mg PO DAILY 04/24/22 [History] Pregabalin [Lyrica] 150 mg PO BID 08/12/22 [History] Furosemide [Lasix] 40 mg PO DAILY 08/27/22 [History] Potassium Chloride [Klor-Con M20] 20 meq PO DAILY 08/27/22 [History] Discharge Disposition: HOME SELF-CARE
[2022-09-14 11:02] VITALS: BP 128/80; PULSE 61
== END 2022-09-14 11:18 ==
LOC: ORWHC2ENDO 08:58
PROVIDERS: ATTEND Surgery
DX: Z12.11 Encounter for screening for malignant neoplasm of colon (principal); D64.9 Anemia, unspecified; K44.9 Diaphragmatic hernia without obstruction or gangrene; K62.5 Hemorrhage of anus and rectum; F41.8 Other specified anxiety disorders; F17.210 Nicotine dependence, cigarettes, uncomplicated; Z87.19 Personal history of other diseases of the digestive system; Z80.0 Family history of malignant neoplasm of digestive organs; Z79.899 Other long term (current) drug therapy
CPT/HCPCS: 81025; 45378; 43235; J2704; J2001

== ENCOUNTER → 2022-09-17 | Outpatient (CLI) | payer OTHER ==
[2022-09-17 15:05] VITALS: BP 118/76; PULSE 75; RESP 18; TEMP 97.9
--- NOTE | 2022-09-17 15:05 | P.PAINPG ---
PQRS Measure Charge Sheet Comment: A 52 yr old female with a history of severe and chronic LBP secondary to lumbar DDD and spondylosis with facet arthropathy without myelopathy presents today for evaluation s/p R SI injection. Pt states she experienced 0% pain relief x 2 wks s/p procedure. Pain level is provoked at 10 /10 in intensity, constant, localized in the R lumbar spine, burning in character w shooting towards the R anterior thigh, R ankle and R foot. Pain is provoked by bending, lifting. Pain is alleviated with medications (Lyrica), PT at home x 6 mo, heat, ice, repositioning and rest. Interventional pain procedures completed include R SI injection Patient is currently on Lyrica Patient denies any side effects of the medication(s), denies excessive drowsiness or sleepiness, denies suicidal ideation and reports that the current pain medication is helping to control the pain and improve activities of daily living. Patient denies any motor or sensory deficits. Patient denies any fever or night sweats, denies any change in the bowel movements or urination. Physical Examination: -Constitutional: Cooperative. Not in acute distress . - Neurologic: Cranial nerve II to XII intact. No focal neurological deficits. - Psychatric: Alert & oriented x 3. Matching mood & appropriate affect. Judgment and insight intact. - Musculoskeletal: Cervical spine: Muscle bulk/ tone/ strength in the bilateral upper extremities normal Vertebral body tenderness to palpation over Spurling test positive Distraction test positive Facet loading test positive Thoracic spine Muscle bulk / tone/ strength in the bilateral paraspinal muscles normal Vertebral body tender to palpation over Facet loading test positive Lumbar spine: Motor bulk/ tone/ strength lower extremities , thigh and legs : 5/5 Deep tendon reflexes : Normal Knee Jerk. Normal Ankle Jerk . Vertebral body tenderness to palpation over L4 Lumbar Facet Loading Test positive Straight Leg Raise: positive at 30 degrees right side/ left side Gaenslen's Test positive Sacral spine : Severe tenderness over the Sacroiliac joint: right side / left side Range of motion: Flexion of the lumbar spine <60 degrees Range of motion: Extension of the lumbar spine <20 degrees Gaenslen's Test positive Krystle test: positive right side / left side Thigh Thrust Test Sacral Thrust Test Assessment and plan: Chronic LBP secondary to lumbar DDD, spondylosis with facet arthropathy without myelopathy, R Sacroiliitis Recommendation of R TFESI L4-L5. May need a series of injections, up to 3 within a 6 mo period, for optimal pain relief. Risks, benefits of procedure discussed and pt verbalized understanding. Denies anticoagulant use or medical history of diabetes. All patient questions answered I have spent less than 30 minutes on patient care today. Dr Hernandez was available by phone for the evaluation of this patient. The time was used to review the medical records including relevant urine studies and Prescription history (MAPs), review of the available imaging, evaluation and examination of the patient, coordination of care with the medical staff and if applicable referring physicians, as well as creation of the medical record PQRS Narrative: Smoking Status Current every day smoker Hx Alcohol Use (MH) No Home Medications: Ambulatory Orders Topiramate 50 mg PO BID 02/14/14 Escitalopram [Lexapro] 20 mg PO DAILY 04/24/22 Famotidine [Pepcid] 20 mg PO BID 04/24/22 buPROPion XL [Wellbutrin XL] 150 mg PO DAILY 04/24/22 lisinopriL [Zestril] 10 mg PO DAILY 04/24/22 Pregabalin [Lyrica] 150 mg PO BID 08/12/22 Furosemide [Lasix] 40 mg PO DAILY 08/27/22 Potassium Chloride [Klor-Con M20] 20 meq PO DAILY 08/27/22 Controlled Substance Measures - Controlled Substance Measures Is patient prescribed a controlled substance at discharge?: No
== END ==
LOC: PNWHC3 13:48
PROVIDERS: ATTEND Specialist
DX: M47.812 Spondylosis without myelopathy or radiculopathy, cervical region (principal); M51.36 Other intervertebral disc degeneration, lumbar region; M54.50 Low back pain, unspecified; M46.1 Sacroiliitis, not elsewhere classified; F17.210 Nicotine dependence, cigarettes, uncomplicated; Z88.8 Allergy status to other drugs, medicaments and biological substances; Z79.899 Other long term (current) drug therapy
CPT/HCPCS: 99211

== ENCOUNTER → 2023-02-05 | Outpatient (CLI) | payer MEDICAID, OTHER ==
--- NOTE | 2023-02-05 16:53 | CT ---
EXAMINATION TYPE: CT hip RT wo con CT DLP: 1010.7 mGycm, Automated exposure control for dose reduction was used. DATE OF EXAM: 02/05/2023 4:13 PM COMPARISON: . No direct comparisons. CLINICAL INDICATION:Female, 52 years old with history of M25.551PHH, Rt side hip injury from a fall, last March. Rt side leg numbness, difficulty ambulating. TECHNIQUE: Axial images were obtained of the right hip . Additional coronal and sagittal reformatted images and soft tissue and bone window were obtained for review. 3-D reconstruction was created on a separate workstation. Contrast used: None Oral contrast used: None FINDINGS: There is no evidence of fracture, subluxation, or dislocation. No significant soft tissue swelling or joint effusion is identified. No focal muscular atrophy or edema is identified. No radiop aque foreign body identified. Degeneration changes of the right hip with osteophyte formation of the acetabulum and femoral head. T here Joint space narrowing is also present. IMPRESSION: Mild to moderate right hip osteoarthrosis changes. Consider further evaluation with MRI of the right hip.
== END | disposition home or self-care (01) ==
LOC: RADCTMAIN 15:38
PROVIDERS: ATTEND Family Medicine
DX: M16.11 Unilateral primary osteoarthritis, right hip (principal)

== ENCOUNTER → 2023-02-23 | Outpatient (CLI) | payer MEDICAID ==
--- NOTE | 2023-02-23 10:16 | US ---
EXAMINATION TYPE: US pelvis complete transvag DATE OF EXAM: 02/23/2023 COMPARISON: US 2014 CLINICAL INDICATION: Female, 52 years old with history of N93.9 Abnormal uterine and vaginal bleeding ; Abnormal uterine bleeding. . Patient states she was on depo shot x 10 years and has been off o f it for 2 years. She has had bleeding x 8 months. LMP unknown. TECHNIQUE: Transvaginal (TV) and Transabdominal (TA) . Transabdominal sonographic images of the pel vis were acquired. Transvaginal sonographic images were medically necessary to better assess the fol lowing anatomy: Ovaries, endometrium. Date of LMP: unknown EXAM MEASUREMENTS: Uterus: 9.4 x 5.8 x 4.8 cm Endometrial Stripe: 0.36 cm Right Ovary: 3.4 x 1.8 x 1.9 cm Left Ovary: Not seen 1. Uterus: Anteverted. Heterogeneous. Anechoic and septated anechoic subcentimeter areas seen wit hin cervix. 2. Endometrium: Measures 0.36 cm. Increased vascularity identified. 3. Right Ovary: Anechoic areas seen, largest area seen measures: 2.2 1.6 x 2.0 cm. 4. Left Ovary: Not seen 5. Bilateral Adnexa: Appear wnl 6. Posterior cul-de-sac: Appears wnl IMPRESSION: Endometrium is within normal limits for thickness however it is demonstrating increased vascularity w hich is not normal. Direct visualization recommended to rule out underlying pathology.
== END | disposition home or self-care (01) ==
LOC: RADUSWWP 09:00
PROVIDERS: ATTEND Family Medicine
DX: N93.9 Abnormal uterine and vaginal bleeding, unspecified (principal)
CPT/HCPCS: 76830; 76856

== ENCOUNTER → 2023-02-25 | Outpatient (CLI) | payer OTHER ==
--- NOTE | 2023-02-28 20:24 | MR ---
EXAMINATION TYPE: MR hip RT wo con DATE OF EXAM: 02/25/2023 COMPARISON: CT 02/05/2023. [id number] female M1 6.11,aUNILATERAL PRIMARY OSTEOARTHRITIS, RIG HT HIP. PAIN, CLICKING, LOCKING, LIMITED MOVEMENTKING, LIMITED MOVEMENT TECHNIQUE: Multiplanar, multisright hipmages of the right hip were obtained without IV c rast. FINDINGS There are numerous cervical nabothian cysts. Arcuate configuration to the uterus. The juncti onal zone is estimated up to 10 mm. Findings nonspecific and in the indeterminate range for adenomyos is. Follicular changes right ovary with a 1.9 cm dominant follicle or functional cyst. No pelvic free fluid. Mild sigmoid diverticulosis. Patchy red marrow hyperplasia is present. No suspicious bone marrow replacement. The sacrum and SI joints appear intact. There may be mild joint space narrowing at the bilateral hips. No evidence for hip fracture or AVN. N o sizable labral tear on either side. No hip joint effusion. The bilateral rectus femoris hamstrings origins as well as the iliopsoas and gluteal insertions appea r intact. Symmetric course, caliber, and signal intensity of the sciatic nerves. IMPRESSION: 1. Mild osteoarthritic joint space narrowing at both hips. No evidence for hip fracture or AVN. 2. No other discrete abnormality is seen of the hip/pelvis. 3. Follicular change in the right ovary with a 1.9 cm dominant follicle or functional cyst. 4. Measurement of the uterine junctional zone is in the indeterminate range for adenomyosis. 5. Mild sigmoid diverticulosis.
== END | disposition home or self-care (01) ==
LOC: RADMRIMAIN 08:13
PROVIDERS: ATTEND Family Medicine
DX: M16.0 Bilateral primary osteoarthritis of hip (principal); N83.01 Follicular cyst of right ovary; K57.30 Diverticulosis of large intestine without perforation or abscess without bleeding; N80.03 Adenomyosis of the uterus

== ENCOUNTER → 2023-03-11 | Outpatient (CLI) | payer OTHER ==
[2023-03-12 03:40] LABS: Basophils # (A) 0.06 X 10*3/uL (0.00-0.10); Basophils % (A) 0.4 %; Eosinophils # (A) 0.12 X 10*3/uL (0.04-0.35); Eosinophils % (A) 0.8 %; HCT 40.8 % (37.2-46.3); HGB 12.5 d/dL (12.0-15.0); Lymphocytes # (A) 2.29 X 10*3/uL (0.90-5.00); Lymphocytes % (A) 15.2 %; MCH 26.1 pg (27.0-32.0); MCHC 30.6 d/dL (32.0-37.0); MCV 85.2 FL (80.0-97.0); Mean Platelet Volume 11.1 FL (9.5-12.2); Monocytes # (A) 0.66 X 10*3/uL (0.20-1.00); Monocytes % (A) 4.4 %; NRBC Per 100 WBC 0 X 10*3/uL (0.00-0.01); Neutrophils # (A) 11.86 X 10*3/uL (1.80-7.70); Neutrophils % (A) 78.8 %; Platelet Count 355 X 10*3/uL (140-440); RBC 4.79 X 10*6/uL (4.10-5.20); RDW 16.3 % (11.5-14.5); WBC 15.05 X 10*3/uL (4.50-10.00)
== END | disposition home or self-care (01) ==
LOC: LABPAT 12:05
PROVIDERS: ATTEND Obstetrics & Gynecology Obstetrics
DX: Z01.818 Encounter for other preprocedural examination (principal); I10 Essential (primary) hypertension; N92.0 Excessive and frequent menstruation with regular cycle; R94.31 Abnormal electrocardiogram [ECG] [EKG]
CPT/HCPCS: 85025; 93005

== ENCOUNTER 2023-03-15 07:07 | Day surgery (SDC) | payer OTHER ==
[2023-03-09 17:57] VITALS: BMI 48.1
[~2023-03-15 07:07] MED LIST changes: -LACTATED RINGERS 1,000 ML IV SCH; -LIDOCAINE 1% (10MG/ML) FOR IV START INTRADERMA PRN; +Pre Op ABX Message 1 EACH MISC MISCELLANE ONE
[2023-03-15] MEDS ORDERED: SCOPOLAMINE 1 MG/72 HR PATCH TRANSDERM ONE (07:35)
[2023-03-15] MEDS ORDERED: DEXAMETHASONE SOD PHOSPHATE 4 MG/ML 1 ML VIAL IV ONE (07:35)
[2023-03-15] MEDS ORDERED: ONDANSETRON 4 MG/2 ML VIAL IVP ONE (07:35)
[2023-03-15] MEDS ORDERED: HYDROmorphone 0.5 MG/0.5 ML SYRINGE IVP PRN (07:35)
[2023-03-15] MEDS ORDERED: LIDOCAINE 1% (10MG/ML) FOR IV START INTRADERMA PRN (07:35)
[2023-03-15] MEDS ORDERED: droPERidol 5 MG/2 ML VIAL IVP ONE (07:35)
[2023-03-15] MEDS: LACTATED RINGERS 1,000 ML IV SCH ×2 (07:47→10:15)
[2023-03-15] MEDS ORDERED: KETOROLAC 15 MG/ML 1 ML VIAL ONE (08:21)
[2023-03-15] MEDS ORDERED: PROPOFOL 10 MG/ML 20 ML VIAL IV ONE (08:21)
[2023-03-15] MEDS ORDERED: fentaNYL (PF) 50 MCG/ML 2 ML AMP ONE (08:21)
[2023-03-15] MEDS ORDERED: LIDOCAINE 2% INJ 20 MG/ML (2 ML VIAL) ONE (08:21)
[2023-03-15] MEDS ORDERED: SUCCINYLCHOLINE CHLORIDE 200 MG/10 ML VIAL IV ONE (08:21)
--- NOTE | 2023-03-15 08:57 | P.OP ---
Date of Procedure: 03/15/23 Preoperative Diagnosis: Heavy menstrual bleeding Postoperative Diagnosis: Same Procedure(s) Performed: Hysteroscopy, dilation and curettage, endometrial ablation with NovaSure Anesthesia: ABIMBOLA Surgeon: Laura Mccarty Estimated Blood Loss (ml): 5 IV fluids (ml): 300 Urine output (ml): 25 Pathology: other (Endometrial curettings) Condition: stable Disposition: PACU Indications for Procedure: Heavy menstrual bleeding Operative Findings: Proliferative endometrium, uterine cavity noted to be 9 cm, with NovaSure ablation length of 5, width of 3.9, power of 107, time of 75 seconds. Description of Procedure: Patient was taken back to the operating suite where general anesthesia was obtained without difficulty by the anesthesia department. She was prepped and draped in normal sterile fashion in the dorsal lithotomy position. A red rubber catheter was used to drain the bladder of clear yellow urine. A weighted speculum was placed in the posterior vaginal vault the anterior lip of the cervix is visualized and grasped with a single-tooth tenaculum. The endocervical canal was then serially dilated. Hysteroscope was placed through the cervix and toward the endometrium. A Jaleesa cavity was noted be proliferative multiple pictures were taken and hysteroscope was removed. At this time a sharp curettage was then performed until gritty texture was noted in all 4 quadrants of the uterine cavity. The specimen was then sent to pathology for analysis. The NovaSure was then opened and set the appropriate measurements for this patient's uterine cavity. A length of 5, width of 3.9, yielding a power of 107. After the cavity assessment was passed the cycle was allowed to complete for a total time of 75 seconds. After the cycle was complete the NovaSure was removed without difficulty. The single-tooth tenaculum was taken off of the anterior lip of the cervix and hemostasis was appreciated. All counts were noted to be correct 2. Patient tolerated procedure well was taken the recovery room awake in stable condition.
[2023-03-15 09:02] VITALS: RESP 16; TEMP 97.5
[2023-03-15 10:51] VITALS: BP 118/75; PULSE 65
== END 2023-03-15 10:53 | disposition home or self-care (01) ==
LOC: OR 07:07
PROVIDERS: ATTEND Obstetrics & Gynecology Obstetrics
DX: N92.0 Excessive and frequent menstruation with regular cycle (principal); I10 Essential (primary) hypertension; K21.9 Gastro-esophageal reflux disease without esophagitis; Z79.899 Other long term (current) drug therapy; Z88.8 Allergy status to other drugs, medicaments and biological substances; Z82.49 Family history of ischemic heart disease and other diseases of the circulatory system
CPT/HCPCS: 81025; 88305; 58563; J0330; J1100; J2405; J3010; J1885; J2704; J1170; J2001

== ENCOUNTER 2023-03-18 15:06 | Emergency (ER) | payer OTHER ==
[2023-03-18 15:40] VITALS: BP 129/78; PULSE 77; RESP 18; TEMP 98.7
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
[2023-03-18 17:50] LABS: Anisocytosis Slight; Basophils # (A) 0.1 k/uL (0-0.2); Basophils % (A) 1 %; Eosinophils # (A) 0.2 k/uL (0-0.7); Eosinophils % (A) 1 %; HCT 36.8 % (34.0-46.0); HGB 12.4 gm/dL (11.4-16.0); Lymphocytes # (A) 2.5 k/uL (1.0-4.8); Lymphocytes % (A) 17 %; MCH 27.1 pg (25.0-35.0); MCHC 33.7 g/dL (31.0-37.0); MCV 80.6 fL (80.0-100.0); Mean Platelet Volume 7.9; Monocytes # (A) 0.6 k/uL (0-1.0); Monocytes % (A) 4 %; Neutrophils # (A) 10.8 k/uL (1.3-7.7); Neutrophils % (A) 76 %; Platelet Count 277 k/uL (150-450); RBC 4.57 m/uL (3.80-5.40); RDW 16.5 % (11.5-15.5); WBC 14.2 k/uL (3.8-10.6)
[2023-03-18 17:59] LABS: INR 0.9 (<1.2); Partial Thromboplastin Time 23.8 sec (22.0-30.0); Prothrombin Time 9.7 sec (9.0-12.0)
[2023-03-18 18:11] LABS: ALT 26 U/L (4-34); AST 26 U/L (14-36); African American GFR (CKD) >90 (>60 ml/min/1.73 sqM); Albumin 3.9 g/dL (3.5-5.0); Alkaline Phosphatase 106 U/L (38-126); Anion Gap 9 mmol/L; Blood Urea Nitrogen 11 mg/dL (7-17); Calcium 8.6 mg/dL (8.4-10.2); Carbon Dioxide 23 mmol/L (22-30); Chloride 106 mmol/L (98-107); Glucose 87 mg/dL (74-99); Non-African American GFR(CKD) >90 (>60 ml/min/1.73 sqM); Potassium 3.9 mmol/L (3.5-5.1); Sodium 138 mmol/L (137-145); Total Bilirubin 0.5 mg/dL (0.2-1.3); Total Protein 7.1 g/dL (6.3-8.2)
--- NOTE | 2023-03-18 18:20 | XR ---
EXAMINATION TYPE: XR chest 2V DATE OF EXAM: 03/18/2023 COMPARISON: 03/02/2022 HISTORY: 53-year-old female with syncope TECHNIQUE: PA and lateral views FINDINGS: Heart and lungs are normal in size. Aorta and pulmonary vasculature within normal limits. Mild inters titial prominence and peribronchial cuffing. Some strandy atelectasis in the lower lungs without cons olidation or pleural effusion. IMPRESSION: Some peribronchial cuffing could reflect bronchitis or asthma. No focal infiltrate seen.
[2023-03-18 18:30] LABS: Appearance,Urine Clear (Clear); Bilirubin,Urine Negative (Negative); Blood,Urine Small (Negative); Color,Urine Yellow; Glucose,Urine (UA) Negative (Negative); Ketones,Urine Negative (Negative); Leukocyte Esterase,Urine Negative (Negative); Mucus,Urine Few /hpf; Nitrite,Urine Negative (Negative); PH, Urine 5.5 (5.0-8.0); Protein,Urine Negative (Negative); RBC,Urine 4 /hpf (0-5); Specific Gravity,Urine 1.019 (1.001-1.035); Squamous Epithelial Cell,Urine 3 /hpf (0-4); Urobilinogen,Urine <2.0 mg/dL (<2.0); WBC,Urine 1 /hpf (0-5)
--- NOTE | 2023-03-18 20:09 | CT ---
EXAMINATION TYPE: CT chest angio for PE DATE OF EXAM: 03/18/2023 COMPARISON: Radiograph earlier today HISTORY: 53-year-old female chest pain, weakness, post-op uterine ablation TECHNIQUE: Contiguous axial scanning of the chest performed with IV Contrast, patient injected with 6 7cc mL of Isovue 370. Coronal/sagittal MIP reconstructions performed. CT DLP: 703.1 mGycm Automated exposure control for dose reduction was used. FINDINGS: Heart normal size without pericardial effusion. No reflux of contrast into the hepatic vein. Aorta normal caliber with shortness of breath anatomy. No gross adenopathy by CT size criteria. The degree of opacification of the pulmonary arterial system is essentially nondiagnostic. No obvious large central embolus. Lobar, segmental, and more arterial branches are nondiagnostic for assessment of PE. No consolidation or pleural effusion. There is a small hiatal hernia. Suspect underlying fatty infiltration of the liver. Cholecystectomy clips. Hilar splenules. Bones: Fatty matrix hemangioma within the T9 vertebral body. IMPRESSION: 1. ESSENTIALLY NONDIAGNOSTIC FOR ASSESSMENT OF PULMONARY EMBOLUS DUE TO POOR CONTRAST BOLUS. 2. No acute pulmonary process. 3. Small hiatal hernia and hepatic steatosis.
== END 2023-03-18 22:05 | disposition home or self-care (01) ==
LOC: EC 15:06
DX: G89.18 Other acute postprocedural pain (principal); H11.33 Conjunctival hemorrhage, bilateral; R07.81 Pleurodynia; R06.02 Shortness of breath; I10 Essential (primary) hypertension; K21.9 Gastro-esophageal reflux disease without esophagitis; F32.A Depression, unspecified; F41.9 Anxiety disorder, unspecified; F17.290 Nicotine dependence, other tobacco product, uncomplicated; Z79.899 Other long term (current) drug therapy; Z90.49 Acquired absence of other specified parts of digestive tract
CPT/HCPCS: 36415; 93005; 80053; 84484; 85025; 85610; 85730; 81001; 71046; 71275; 99285; Q9967

== ENCOUNTER → 2023-11-19 | Outpatient (CLI) | payer OTHER ==
--- NOTE | 2023-11-22 12:36 | MM ---
Reason for Exam: Screening (asymptomatic). Last mammogram was performed 4 year(s) and 9 month(s) ago. Patient History: Menarche at age 14. First Full-Term at age 28. Risk Values: Clare 5 year model risk: 1.1%. NCI Lifetime model risk: 9.7%. Prior Study Comparison: 02/20/2019 Bilateral Screening Mammogram, [facility]. Tissue Density: There are scattered areas of fibroglandular density. Findings: Analyzed By CAD. There is no suspicious group of microcalcifications or new suspicious mass in either breast. Benign-appearing calcifications. Overall Assessment: Benign, BI-RAD 2 Management: Screening Mammogram of both breasts in 1 year. . Patient should continue monthly self-breast exams. A clinical breast exam by your physician is recommended on an annual basis. This exam should not preclude additional follow-up of suspicious palpable abnormalities. Note on Clare scores and lifetime risk: 1. A Clare score greater than 3% is considered moderate risk. If this is the case, consider specialist referral to assess eligibility for a risk reducing agent. 2. If overall lifetime risk for the development of breast cancer is 20% or higher, the patient may qualify for future screening with alternating mammogram and breast MRI. Electronically signed and approved by: Rigo Caballero M.D. Radiologis
== END | disposition home or self-care (01) ==
LOC: RADMAMWWP 13:16
PROVIDERS: ATTEND Family Medicine
DX: Z12.31 Encounter for screening mammogram for malignant neoplasm of breast (principal)
CPT/HCPCS: 77063; 77067

== ENCOUNTER → 2023-11-23 | Outpatient (CLI) | payer OTHER ==
--- NOTE | 2023-11-23 19:00 | US ---
EXAMINATION TYPE: US carotid duplex BILAT DATE OF EXAM: 11/23/2023 COMPARISON: NONE CLINICAL INDICATION: Female, 53 years old with history of R20.2 PARESTHESIA OF SKIN; Paresthesia of h ands. Hypertension. TECHNIQUE: Carotid duplex ultrasound examination. Indirect Doppler criteria was utilized. FINDINGS: EXAM MEASUREMENTS: RIGHT: Peak Systolic Velocity (PSV) cm/sec ----- Right CCA: 63.6 ----- Right ICA: 74.2 ----- Right ECA: 97.4 ICA/CCA ratio: 1.2 RIGHT: End Diastole cm/sec ----- Right CCA: 18.6 ----- Right ICA: 29.4 ----- Right ECA: 16.0 LEFT: Peak Systolic Velocity (PSV) cm/sec ----- Left CCA: 96.3 ----- Left ICA: 66.8 ----- Left ECA: 100.7 ICA/CCA ratio: 0.7 LEFT: End Diastole cm/sec ----- Left CCA: 28.1 ----- Left ICA: 25.0 ----- Left ECA: 19.3 VERTEBRALS (direction of flow): Right Vertebral: Antegrade Left Vertebral: Antegrade Rhythm: Normal [employer]PER [employer]WINDER NOTES: No elevated velocities at this time. Intimal thickening seen within bilateral carotid arteries. IMPRESSION: Less than 50% stenosis of the bilateral carotid bifurcations. Criteria for Assigning % of Stenosis / Diameter reduction (Estimation based on the indirect measurements of the internal carotid artery velocities (ICA PSV). 1. Normal (no stenosis)=ICA PSV < 125 cm/s: ratio < 2.0: ICA EDV<40 cm/s. 2. Less than 50% stenosis=ICA PSV < 125 cm/s: ratio < 2.0: ICA EDV<40 cm/s. 3. 50 to 69% stenosis=ICA PSV of 125 to 230 cm/s: ration 2.0 ? 4.0: ICA EDV 40-100 cm/s. 4. Greater than 70% stenosis to near occlusion= ICA PSV > 230 cm/s: ratio > 4.0: ICA EDV > 100 cm/s. 5. Near occlusion= ICA PSV velocities may be low or undetectable: variable ratio and ICA EDV. 6. Total occlusion=unable to detect flow.
== END | disposition home or self-care (01) ==
LOC: RADUSWWP 15:20
PROVIDERS: ATTEND Family Medicine
DX: I65.23 Occlusion and stenosis of bilateral carotid arteries (principal); R20.2 Paresthesia of skin
CPT/HCPCS: 93880

== ENCOUNTER → 2024-08-18 | Outpatient (CLI) | payer OTHER ==
--- NOTE | 2024-08-18 19:13 | US ---
EXAMINATION TYPE: US pelvis complete transvag DATE OF EXAM: 08/18/2024 COMPARISON: Prior ultrasound February 23, 2023 CLINICAL INDICATION: Female, 54 years old with history of R10.9 UNSPECIFIED ABD PAIN; pelvic pain, ab n outside imaging TECHNIQUE: Transvaginal (TV) and Transabdominal (TA) . Transabdominal grayscale sonographic images of the pelvis were acquired. Transvaginal sonographic im ages were medically necessary to better assess the following anatomy: Ovaries Doppler imaging: Not performed. FINDINGS: Date of LMP: ablation EXAM MEASUREMENTS: Uterus: 5.2x5.6x5.1 cm Endometrial Stripe: 0.4 cm Right Ovary: Not visualized due to bowel gas. Left Ovary: 1.8x1.2x1.8 cm 1. Uterus: Anteverted heterogenous 2. Endometrium: wnl 3. Right Ovary: Obscured by overlying bowel gas 4. Left Ovary: wnl 5. Bilateral Adnexa: Obscured by overlying bowel gas 6. Posterior cul-de-sac: hypoechoic mobile area ?right ovary vs. other exam limited by bowel gas and habitus IMPRESSION: Suboptimal study. Nonvisualized normal or abnormal right ovary. Advise CT or MRI follow-u p if clinical concern persists. [facility], , 08/18/2024 7:10 PM
== END | disposition home or self-care (01) ==
LOC: RADUSWWP 15:24
PROVIDERS: ATTEND Family Medicine
DX: R10.9 Unspecified abdominal pain (principal); R10.2 Pelvic and perineal pain
CPT/HCPCS: 76830; 76856

== ENCOUNTER → 2024-09-04 | Outpatient (CLI) | payer OTHER ==
--- NOTE | 2024-09-04 20:49 | MR ---
EXAMINATION TYPE: MR pelvis wo/w con DATE OF EXAM: 09/04/2024 COMPARISON: Pelvic ultrasound 08/18/2024, 02/23/2023, MR sacrum/coccyx 07/17/2022, CTA thoracoabdominal p stefan with runoff 04/24/2022, MRI lumbar spine 05/31/2022 CLINICAL INDICATION:Female, 54 years old with history of R10.9 UNSPECIFIED ABDOMINAL PAIN; [facility], TECHNIQUE: Triplane multisequence imaging was performed of the pelvis. Then the patient was given c ontrast/gadolinium, 12 cc of Gadobutrol with multiple post contrast sequences where obtained in two p lanes. FINDINGS: Reproductive: Vagina: Unremarkable. Uterus: The uterus is anteverted in position. Uterus measures 7.4 x 3.1 x 5.4 cm. The endometrium and junctional zone are within normal limits. Multiple nabothian cysts are seen in the lower uterine se gment. Ovaries: Follicular changes are noted to the ovaries. Bladder: Unremarkable. Bowel: Unremarkable as visualized. Peritoneum: No free fluid. No evidence of adenopathy. Vasculature: Unremarkable. Abdominal wall/soft tissues: Small fat filled umbilical hernia. Musculoskeletal: Stable T2 hyperintense lesions within the L3 and L4 vertebral bodies. Most consisten t with benign vertebral hemangiomas. Other: Left renal inferior pole T2 hyperintense 1.4 cm simple cyst. IMPRESSION: No evidence of suspicious pelvic mass or MRI abnormality to explain patient's symptomology. [facility], , 09/04/2024 8:47 PM
== END | disposition home or self-care (01) ==
LOC: RADMRIMAIN 19:10
PROVIDERS: ATTEND Family Medicine
DX: N88.8 Other specified noninflammatory disorders of cervix uteri (principal); N28.1 Cyst of kidney, acquired; K42.9 Umbilical hernia without obstruction or gangrene
CPT/HCPCS: 72197; A9585

== ENCOUNTER → 2024-09-08 | Outpatient (CLI) | payer OTHER ==
--- NOTE | 2024-09-08 19:18 | MR ---
EXAMINATION TYPE: MR abdomen wo/w con DATE OF EXAM: 09/08/2024 6:46 PM INDICATION: Patient age:Female; 54 years old; Reason for study: UNSPEC ABD PAIN R10.9; [facility]. COMPARISON: MR pelvis 09/04/2024, CTA thoracoabdominal with runoff 04/24/2022, MR T-spine/L-spine 022 TECHNIQUE: Multiplanar multi-sequence imaging was performed of the abdomen without and with IV contr ast. The patient was given 12 ccs of Gadobutrol intravenously and dynamic imaging was performed. Post IV contrast subtraction images were also submitted for review. FINDINGS: LOWER CHEST: No gross irregularity. ABDOMEN Liver: Noncirrhotic morphology. No fatty infiltration. Right hepatic dome subcentimeter T2 hyperinten se cyst. No suspicious enhancing lesion. Gallbladder and Bile ducts: Gallbladder is surgical absent. No biliary duct dilatation. Pancreas: Unremarkable. Spleen: Unremarkable. Couple of splenules. Adrenal glands: Unremarkable. Kidneys: No hydronephrosis or suspicious enhancing renal lesions. Couple of left renal simple cysts w ith largest measured 1.3 cm. Stomach and Bowel: No evidence of bowel obstruction. Cecum appears to be positioned in the left mid a bdomen. Peritoneum: No evidence of pneumoperitoneum, free fluid, or adenopathy. Vasculature: Unremarkable. No aortic aneurysm. Abdominal wall: Small fat filled umbilical hernia. Musculoskeletal: The osseous structures appear intact. Heterogenous enhancing lesions identified with in the T8, L3 and L4 vertebral bodies. These correspond to previously seen hemangiomas. IMPRESSION: 1. No evidence of suspicious abdominal mass or MRI abnormality to explain patient's symptomology. 2. Postcholecystectomy changes. [facility], , 09/08/2024 7:15 PM
== END | disposition home or self-care (01) ==
LOC: RADMRIMAIN 17:46
PROVIDERS: ATTEND Family Medicine
DX: R10.9 Unspecified abdominal pain (principal); Z90.49 Acquired absence of other specified parts of digestive tract
CPT/HCPCS: 74183; A9585